=== PATIENT | female | born 1960 | race Caucasian/White ===

== ENCOUNTER 2018-11-23 11:57 | Inpatient (IN) | payer OTHER ==
[~2018-11-23] VITALS: Ht 167.6 cm; Wt 61.7 kg
[~2018-11-23 11:57] MED LIST: DEPAKOTE500 MG PO; NEXIUM40 MG PO; TRAZODONE HCL50 MG PO; VALIUM10 MG PO
--- OUTSIDE RECORDS SUMMARY | 2018-11-23 11:59 | XMS REPORT | Clinical Summary ---
Author Author [place] [facility] [place] [facility] Address Unknown Phone Unavailable Care Team Providers Care Administrative Supervisor Name Role Phone Asked, No Pcp PCP Unavailable Allergies Comments Active Allergy Reactions Severity Noted Date Itching and vomiting Codeine Other (See Medium 08/24/2017 Comments) Medications End Date Status Medication Sig Dispensed Refills Start Date Active traZODone (DESYREL) 150 Take 300 mg 0 05/11/201 MG tablet by mouth 7 nightly. Active diazePAM (VALIUM) 10 MG Take 10 mg by 0 tablet mouth 3 7 (three) times a day. Active venlafaxine XR Take 75 mg by 0 (EFFEXOR-XR) 75 MG 24 hr mouth every 7 capsule morning. Active ondansetron (ZOFRAN) 4 MG Take 1 tablet 10 tablet 0 05/25/ tablet (4 mg total) 9 by mouth every 8 (eight) hours as needed for nausea or vomiting for up to 10 doses. Active esomeprazole (NexIUM) 40 Take 40 mg by 0 MG capsule mouth daily before breakfast. Active BREO ELLIPTA 200-25 Inhale 1 Dose 3 mcg/dose blister with daily. 9 device powder for inhalation Active albuterol (ACCUNEB) 2.5 Take 2.5 mg 2 mg /3 mL (0.083 %) by 9 nebulizer solution nebulization 4 (four) times a day as needed. Active benzonatate (TESSALON) Take 1 30 capsule 0 100 MG capsule capsule (100 9 mg total) by mouth every 6 (six) hours as needed for cough for up to 30 doses. 08/02/2018 Discontinued divalproex (DEPAKOTE) 500 Take 500 mg 0 03/10/201 MG 24 hr tablet by mouth 7 every morning. 05/25/2018 Discontinued albuterol (PROVENTIL) 2.5 Take 2.5 mg 0 mg /3 mL (0.083 %) by 7 nebulizer solution nebulization 3 (three) times a day. 05/25/2018 Discontinued PROAIR HFA 90 Inhale 1 puff 0 mcg/actuation inhaler daily as 7 needed. 08/03/2018 Discontinued (Med List Cleanup) ADVAIR DISKUS 250-50 Inhale 1 puff 0 mcg/dose DISKUS 2 (two) times 7 a day. 01/02/2018 dicyclomine (BENTYL) 20 Take 1 tablet 60 tablet 0 mg tablet (20 mg total) 8 by mouth 2 (two) times a day for 30 days. 12/08/2017 traMADol (ULTRAM) 50 mg Take 1 tablet 15 tablet 0 tablet (50 mg total) 8 by mouth every 6 (six) hours as needed for moderate pain for up to 5 days. 01/02/2018 ondansetron ODT (ZOFRAN Take 1 tablet 20 tablet 0 ODT) 4 MG disintegrating (4 mg total) 8 tablet by mouth every 8 (eight) hours as needed for nausea for up to 30 days. 05/29/2018 azithromycin (ZITHROMAX) Take first 2 6 tablet 0 250 MG tablet tablets 9 together, then 1 every day until finished. 06/24/2018 albuterol (PROAIR Inhale 1-2 1 Inhaler 0 HFA,PROVENTIL puffs every 6 9 HFA,VENTOLIN HFA) 90 (six) hours mcg/actuation inhaler as needed for wheezing for up to 30 days. 05/30/2018 predniSONE (DELTASONE) 10 Take 4 20 tablet 0 mg tablet tablets (40 9 mg total) by mouth daily for 5 days. 05/30/2018 acetaminophen-codeine Take 1-2 15 tablet 0 (TYLENOL WITH CODEINE #3) tablets by 9 300-30 mg per tablet mouth every 6 (six) hours as needed for moderate pain for up to 5 days. 09/06/2018 aspirin (ECOTRIN) 325 MG Take 1 tablet 30 tablet 0 enteric coated tablet (325 mg 9 total) by mouth daily for 30 days. 08/13/2018 amoxicillin-pot Take 1 tablet 14 tablet 0 clavulanate (AUGMENTIN) by mouth 2 9 875-125 mg per tablet (two) times a day for 7 days. 08/13/2018 predniSONE (DELTASONE) 10 follow 1 Package 0 mg tablet pack package 9 directions Active Problems Problem Noted Date Pneumonia 08/03/2018 Bronchopneumonia 08/02/2018 Abdominal pain 06/14/2016 Encounters Care Team Description Date Type Specialty Hay Lynch MD Kohlnhofer, Matthew, MD Al-Lahiq, Maha, MD Bronchopneumonia (Primary Dx); Hypokalemia 08/02/2018 [facility] General Internal Medicine - Encounter 08/06/2018 Hay Lynch MD COPD exacerbation (HCC) (Primary Dx) 05/24/2018 Emergency Emergency Medicine - 05/25/2018 Reuben Micheal MD Nausea and vomiting, intractability of vomiting not specified, unspecified vomiting type (Primary Dx); Diarrhea, unspecified type 12/03/2017 Emergency Emergency Medicine after 11/22/2017 Social History Date Tobacco Use Types Packs/Day Years Used Quit: 05/14/2016 Current Every Day Smoker 0.5 Smokeless Tobacco: Never Used Drinks/Week oz/Week Comments Alcohol Use No Sex Assigned at Date Recorded Not on file Industry Job Start Date Occupation Not on file Not on file Not on file Travel End Travel History Travel Start No recent travel history available. Last Filed Vital Signs Reading Time Taken Comments Vital Sign 109/70 08/06/2018 4:22 PM CDT Blood Pressure 85 08/06/2018 3:10 PM CDT Pulse 36.6 C (97.8 F) 08/06/2018 10:56 AM CDT Temperature 20 08/06/2018 3:10 PM CDT Respiratory Rate 95% 08/06/2018 3:00 PM CDT Oxygen Saturation - - Inhaled Oxygen Concentration 52.2 kg (115 lb) 08/02/2018 9:28 AM CDT Weight 170.2 cm (5' 7") 08/02/2018 9:28 AM CDT Height 18.01 08/02/2018 9:28 AM CDT Body Mass Index Plan of Treatment Health Maintenance Due Date Last Done Comments CERVICAL CANCER SCREENING 07/14/1983 BREAST CANCER SCREENING 2012 COLONOSCOPY SCREENING 2012 SHINGLES VACCINES (#1) 2012 INFLUENZA VACCINE 10/02/2018 Procedures Comments Procedure Name Priority Date/Time Associated Diagnosis GRAM STAIN Routine 08/06/2018 9:08 AM CDT SPUTUM CULTURE Routine 08/06/2018 9:08 AM CDT FL ESOPHAGRAM COMPLETE Routine 08/06/2018 8:35 AM CDT ESTIMATED GFR Routine 08/06/2018 4:35 AM CDT BASIC METABOLIC PANEL Routine 08/06/2018 4:35 AM CDT HC COMPLETE BLD COUNT Routine 08/06/2018 W/AUTO DIFF 4:35 AM CDT ESTIMATED GFR Routine 08/05/2018 6:23 AM CDT BASIC METABOLIC PANEL Routine 08/05/2018 6:23 AM CDT HC COMPLETE BLD COUNT Routine 08/05/2018 W/AUTO DIFF 6:23 AM CDT FL MODIFIED BARIUM Routine 08/04/2018 SWALLOW 5:44 PM CDT ESTIMATED GFR Routine 08/03/2018 5:59 AM CDT COMPREHENSIVE METABOLIC Routine 08/03/2018 PANEL 5:59 AM CDT HC COMPLETE BLD COUNT Routine 08/03/2018 W/AUTO DIFF 5:59 AM CDT TROPONIN Timed 08/02/2018 6:[address] ANGIOGRAM PE CHEST Routine 08/02/2018 5:02 PM CDT ECHOCARDIOGRAM 2D Routine 08/02/2018 COMPLETE W MMODE SPECTRAL 3:57 PM CDT COLOR DOPPLER (27924) TROPONIN Timed 08/02/2018 1:31 PM CDT BLOOD CULTURE, AEROBIC & Routine 08/02/2018 ANAEROBIC 11:45 AM CDT XR CHEST 1 VW PORTABLE STAT 08/02/2018 10:33 AM CDT ESTIMATED GFR STAT 08/02/2018 10:09 AM CDT B NATRIURETIC PEPTIDE STAT 08/02/2018 10:09 AM CDT TROPONIN STAT 08/02/2018 10:09 AM CDT COMPREHENSIVE METABOLIC STAT 08/02/2018 PANEL 10:09 AM CDT HC COMPLETE BLD COUNT STAT 08/02/2018 W/AUTO DIFF 10:09 AM CDT BLOOD CULTURE, AEROBIC & Routine 08/02/2018 ANAEROBIC 10:09 AM CDT ECG ED PRELIMINARY Routine 08/02/2018 INTERPRETATION 9:31 AM CDT ECG 12-LEAD STAT 08/02/2018 9:27 AM CDT ESTIMATED GFR Routine 05/25/2018 12:00 AM CDT COMPREHENSIVE METABOLIC Routine 05/25/2018 PANEL 12:00 AM CDT D-DIMER Routine 05/25/2018 12:00 AM CDT PROTHROMBIN TIME WITH INR Routine 05/25/2018 12:00 AM CDT PARTIAL THROMBOPLASTIN Routine 05/25/2018 TIME (PTT) 12:00 AM CDT XR CHEST 2 VW STAT 05/24/2018 11:52 PM CDT B NATRIURETIC PEPTIDE STAT 05/24/2018 11:35 PM CDT TROPONIN STAT 05/24/2018 11:35 PM CDT HC COMPLETE BLD COUNT STAT 05/24/2018 W/AUTO DIFF 11:35 PM CDT ECG 12-LEAD STAT 05/24/2018 11:08 PM CDT ECG ED PRELIMINARY Routine 05/24/2018 INTERPRETATION 11:[address] ABDOMEN PELVIS W STAT 12/03/2017 CONTRAST 10:53 PM CDT XR CHEST 1 VW PORTABLE STAT 12/03/2017 9:58 PM CDT INFLUENZA ANTIGEN Routine 12/03/2017 9:54 PM CDT ESTIMATED GFR STAT 12/03/2017 9:53 PM CDT TROPONIN STAT 12/03/2017 9:53 PM CDT B NATRIURETIC PEPTIDE STAT 12/03/2017 9:53 PM CDT URINALYSIS SCREEN AND STAT 12/03/2017 MICROSCOPY, WITH REFLEX 9:53 PM CDT TO CULTURE HC COMPLETE BLD COUNT STAT 12/03/2017 W/AUTO DIFF 9:53 PM CDT LIPASE LEVEL STAT 12/03/2017 9:53 PM CDT HEPATIC FUNCTION PANEL STAT 12/03/2017 9:53 PM CDT BASIC METABOLIC PANEL STAT 12/03/2017 9:53 PM CDT GRAM STAIN STAT 12/03/2017 9:53 PM CDT URINE CULTURE STAT 12/03/2017 9:53 PM CDT ECG 12-LEAD Routine 12/03/2017 9:12 PM CDT ECG ED PRELIMINARY Routine 12/03/2017 INTERPRETATION 9:11 PM CDT after 11/22/2017 Results * Sputum culture (08/06/2018 9:08 AM CDT) Sputum culture Normal oral octavio isolated. [place] isolate Comment: [facility] Specimen Information HOSPITAL Specimen Source: Sputum Specimen Site: Expectorated Specimen Sputum - Expectorated Performing Organization Address City/State/Zipcode Phone Number [facility] [place] [address] PATHOLOGY AND GENOMIC MEDICINE [place] [facility] [address] [place] [address] HOSPITAL * Gram stain (08/06/2018 9:08 AM CDT) Only the most recent of 2 results within the time period is included. [facility] Gram stain Few WBC's [place] isolate Few epithelial cells [facility] Rare Gram positive rods [facility] Comment: Specimen Information Specimen Source: Sputum Specimen Site: Expectorated Specimen Sputum - Expectorated Performing Organization Address City/[facility] Phone Number [facility] [place] [address] PATHOLOGY AND GENOMIC MEDICINE [place] [facility] [address] [place] [address] HOSPITAL * FL Esophagram Complete (08/06/2018 8:35 AM CDT) Specimen Narrative Performed At EXAMINATION:FL ESOPHAGRAM COMPLETE [facility] CLINICAL HISTORY:Dysphagiaunexplained COMPARISON:None. Fluoroscopy time: 1 minute 9 seconds. 21 exposures FINDINGS: The patient swallowed air producing granules and barium without difficulty. The esophagus demonstrates normal motility. No focal mucosal abnormality is identified. There is no evidence of stricture. The esophagogastric junction is unremarkable. Mild gastroesophageal reflux. IMPRESSION: Mild gastroesophageal reflux. Otherwise unremarkable esophagram. [id number] Procedure Note Interface, Radiology Results Incoming - 08/06/2018 9:44 AM CDT EXAMINATION: FL ESOPHAGRAM COMPLETE CLINICAL HISTORY: Dysphagia unexplained COMPARISON: None. Fluoroscopy time: 1 minute 9 seconds. 21 exposures FINDINGS: The patient swallowed air producing granules and barium without difficulty. The esophagus demonstrates normal motility. No focal mucosal abnormality is identified. There is no evidence of stricture. The esophagogastric junction is unremarkable. Mild gastroesophageal reflux. IMPRESSION: Mild gastroesophageal reflux. Otherwise unremarkable esophagram. [id number] Performing Organization Address City/State/Zipcode Phone Number [address] [address] * Estimated GFR (08/06/2018 4:35 AM CDT) Only the most recent of 6 results within the time period is included. [facility] Estimated GFR >=90 mL/min/1.73 m2 [place] Comment: [facility] rpretation G1 >=90 Normal or high G2 60-89Mildly decreased G8u41-90 Mildly to moderately decreased E3d26-34 Moderately to severely decreased G4 15-29Severely decreased G5 <15Kidney failure The eGFR was calculated using the Chronic Kidney Disease Epidemiology Collaboration (CKD-EPI) equation. Interpretation is based on recommendations of the National Kidney Foundation-Kidney Disease Outcomes Quality Initiative (NKF-KDOQI) published in 2014. Specimen Plasma specimen Performing Organization Address City/State/Zipcode Phone Number [facility] DEPARTMENT [id number] [place] [address] [place] [address] PATHOLOGY AND GENOMIC MEDICINE [facility] [id number] [place] [address] [place] [address] [facility] * CBC with platelet and differential (08/06/2018 4:35 AM CDT) Only the most recent of 6 results within the time period is included. [facility] WBC 7.02 4.50 - 11.00 k/uL [facility] RBC 3.46 (L) 4.20 - 5.50 m/uL [facility] HGB 9.6 (L) 12.0 - 16.0 g/dL [facility] HCT 31.2 (L) 37.0 - 47.0 % [facility] MCV 90.2 82.0 - 100.0 fL [facility] MCH 27.7 27.0 - 34.0 pg [facility] MCHC 30.8 (L) 31.0 - 37.0 g/dL [facility] RDW - SD 49.3 37.0 - 55.0 fL [facility] MPV 9.4 8.8 - 13.2 fL [facility] Platelet count 378 150 - 400 k/uL [facility] Nucleated RBC 0.00 /100 WBC [facility] Neutrophils 78.7 (H) 39.0 - 69.0 % [facility] Lymphocytes 16.1 (L) 25.0 - 45.0 % [facility] Monocytes 3.8 0.0 - 10.0 % [facility] Eosinophils 0.0 0.0 - 5.0 % [facility] Basophils 0.1 0.0 - 1.0 % [facility] Specimen Blood Performing Organization Address City/[facility] Phone Number [facility] [address] [place] [address] PATHOLOGY AND GENOMIC MEDICINE [address] * Basic metabolic panel (08/06/2018 4:35 AM CDT) Only the most recent of 3 results within the time period is included. Sodium 138 135 - 148 mEq/L [facility] Potassium 4.8 3.5 - 5.0 mEq/L [facility] Chloride 99 98 - 112 mEq/L [facility] CO2 30 24 - 31 mEq/L [facility] Anion gap 9@ANIO 7 - 15 mEq/L [facility] BUN 26 (H) 6 - 20 mg/dL [facility] Creatinine 0.60 0.50 - 0.90 mg/dL [facility] Glucose 152 (H) 65 - 99 mg/dL [facility] Calcium 9.1 8.3 - 10.2 mg/dL [facility] Specimen Plasma specimen Performing Organization Address [facility] Phone Number [address] [place] [address] PATHOLOGY AND GENOMIC MEDICINE [address] * FL Modified Barium Swallow (08/04/2018 5:44 PM CDT) Specimen Narrative Performed At EXAMINATION:FL MODIFIED BARIUM SWALLOW [facility] CLINICAL HISTORY:Aspirationknown or suspected, R63.3 feeding [id number] oropharyngeal stage dysphagiaGERD COMPARISON:None. Fluoroscopy time: 3 minutes 10 seconds, single image obtained FINDINGS: The patient swallowed varying consistencies of barium under direct lateral fluoroscopic evaluation. The study was performed in conjunction with speech pathology. IMPRESSION: There is transient flash laryngeal penetration with ultrathin and thin barium. No aspiration with all consistencies.. Please refer to Speech Pathology report for further details. [id number] Procedure Note Hm Interface, Radiology Results Incoming - 08/04/2018 6:06 PM CDT EXAMINATION: FL MODIFIED BARIUM SWALLOW CLINICAL HISTORY: Aspiration known or suspected, R63.3 feeding difficulty R13.12 oropharyngeal stage dysphagia GERD COMPARISON: None. Fluoroscopy time: 3 minutes 10 seconds, single image obtained FINDINGS: The patient swallowed varying consistencies of barium under direct lateral fluoroscopic evaluation. The study was performed in conjunction with speech pathology. IMPRESSION: There is transient flash laryngeal penetration with ultrathin and thin barium. No aspiration with all consistencies.. Please refer to Speech Pathology report for further details. [id number] Performing Organization Address City/State/Zipcode Phone Number [facility] [address] [place] [address] * Comprehensive metabolic panel (08/03/2018 5:59 AM CDT) Only the most recent of 3 results within the time period is included. Sodium 136 135 - 148 mEq/L [facility] Potassium 4.4 3.5 - 5.0 mEq/L [facility] Chloride 100 98 - 112 mEq/L [facility] CO2 26 24 - 31 mEq/L [facility] Anion gap 10@ANIO 7 - 15 mEq/L [facility] BUN 13 6 - 20 mg/dL [facility] Creatinine 0.60 0.50 - 0.90 mg/dL [facility] Glucose 148 (H) 65 - 99 mg/dL [facility] Calcium 9.5 8.3 - 10.2 mg/dL [facility] Protein 7.7 6.3 - 8.3 g/dL [place] Comment: [facility] 4.6-7.0 g/dL 1 week 4.4-7.6 g/dL 7 months-1year 5.1-7.3 g/dL 1-2 years5.6-7 .5 g/dL >3 years6.0-8 .0 g/dL 18-150 6.3-8.3 g/dL Albumin 3.8 3.5 - 5.0 g/dL [facility] A/G ratio 1.0 0.7 - 3.8 [facility] Alkaline 79 35 - 104 U/L [place] phosphatase [facility] AST 8 (L) 10 - 35 U/L [facility] ALT 8 5 - 50 U/L [facility] Total bilirubin <0.2 0.0 - 1.2 mg/dL [facility] Specimen Plasma specimen Performing Organization Address City/[facility] Phone Number [facility] DEPARTMENT OF [address] [place] [address] [place] [address] PATHOLOGY AND GENOMIC MEDICINE [address] * Troponin (08/02/2018 6:20 PM CDT) Only the most recent of 5 results within the time period is included. Troponin <0.006 0.000 - 0.040 ng/mL [place] Comment: [facility] changed methodology effective: 07/08/2018 at 10:00 am The new method has a 99th percentile cutoff of 0.040 ng/mL Specimen Plasma specimen Performing Organization Address [facility] Phone Number [address] [place] [address] PATHOLOGY AND [facility] MEDIC[facility] [address] * CT Angiogram Pe Chest (08/02/2018 5:02 PM CDT) Specimen Narrative Performed At EXAMINATION: [facility] CT ANGIOGRAM PE CHEST CLINICAL HISTORY: chest painpossible pneumonia TECHNIQUE: CT angiographic images of the chest were obtained during intravenous administration of iodinated contrast. Computerized reformatted images and 3-D MIP images were also obtained and archived (CT pulmonary embolus protocol).CT imaging was performed with iterative reconstruction technique and/or automated exposure control to reduce radiation dose. 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 Heart size is within normal limits. Intrathoracic aorta is of normal caliber. The pulmonary artery is of normal caliber. There is a right hilar lymph node measuring 1.5 x 0.9 cm. An enlarged subcarinal lymph node is 2.8 x 1.5 cm. Some mildly enlarged left hilar nodes are seen. There is a small hiatal hernia. No filling defect is seen in the visible pulmonary arterial tree. There is therefore no CT evidence pulmonary embolus. Bilateral bronchial wall thickening is seen. Extensive bilateral emphysematous changes are again seen. Right apical pleural/peripheral scarring is seen. Right upper lobe pulmonary nodule is 1.3 x 0.8 cm. Some peripheral areas of mild nodularity and linear scarring or atelectasis is seen. Left lower lobe peripheral infiltration is seen. Patchy areas of peripheral infiltration a few small nodules are seen in left upper lobe. There is mild to moderate intrahepatic ductal dilatation again seen. The pancreas, adrenal glands, and spleen are within normal limits. Kidneys are within normal limits in their visible portions. Suspicious osseous lesion is not seen. IMPRESSION: Severe emphysema. Bilateral infiltrates and nodularity most likely related to infectious cause (pneumonia). Enlarged mediastinal lymph nodes. No evidence of pulmonary embolus. [facility]-[id number] Procedure Note [facility], Radiology Results Incoming - 08/02/2018 7:58 PM CDT EXAMINATION: CT ANGIOGRAM PE CHEST CLINICAL HISTORY: chest pain possible pneumonia TECHNIQUE: CT angiographic images of the chest were obtained during intravenous administration of iodinated contrast. Computerized reformatted images and 3-D MIP images were also obtained and archived (CT pulmonary embolus protocol).CT imaging was performed with iterative reconstruction technique and/or automated exposure control to reduce radiation dose. 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 Heart size is within normal limits. Intrathoracic aorta is of normal caliber. The pulmonary artery is of normal caliber. There is a right hilar lymph node measuring 1.5 x 0.9 cm. An enlarged subcarinal lymph node is 2.8 x 1.5 cm. Some mildly enlarged left hilar nodes are seen. There is a small hiatal hernia. No filling defect is seen in the visible pulmonary arterial tree. There is therefore no CT evidence pulmonary embolus. Bilateral bronchial wall thickening is seen. Extensive bilateral emphysematous changes are again seen. Right apical pleural/peripheral scarring is seen. Right upper lobe pulmonary nodule is 1.3 x 0.8 cm. Some peripheral areas of mild nodularity and linear scarring or atelectasis is seen. Left lower lobe peripheral infiltration is seen. Patchy areas of peripheral infiltration a few small nodules are seen in left upper lobe. There is mild to moderate intrahepatic ductal dilatation again seen. The pancreas, adrenal glands, and spleen are within normal limits. Kidneys are within normal limits in their visible portions. Suspicious osseous lesion is not seen. IMPRESSION: Severe emphysema. Bilateral infiltrates and nodularity most likely related to infectious cause (pneumonia). Enlarged mediastinal lymph nodes. No evidence of pulmonary embolus. [facility]-[id number] Performing Organization Address City/State/Zipcode Phone Number [facility] [address] [place] [address] * Echocardiogram complete w contrast and 3D if needed (08/02/2018 3:57 PM CDT) Velocity Ratio 0.95 m/s [facility] (V1/V2) IVS,d 0.82 cm [facility] EF 50.13 % [facility] LA volume 32.00 cm3 [facility] LVPWD,d 0.94 cm [facility] AoV Mean PG 3.76 mmHg [facility] AV LVOT peak 5.64 mmHg [facility] gradient MV valve area p 4.37 cm2 [facility] 1/2 method E/A ratio 1.04 [facility] E wave 144.63 msec [facility] decelartion time LVOT Diam,S 1.75 cm [facility] LVOT area 2.40 cm2 [facility] LVOT Vmax 1.19 m/s [facility] LVOT VTI 0.25 m [facility] AoV Peak PG 6.30 mmHg [facility] MV Peak E Jose 0.86 m/s [facility] MV stenosis 50.39 ms [facility] pressure 1/2 time MV Peak A Jose 0.83 m/s [facility] LV Vol,s A2C 37.43 mL [facility] LV Vol,d A2C 87.55 mL [facility] AoV Area, Vmax 2.28 cm2 [facility] AoV Area, VTI 2.53 cm2 [facility] AoV Vmax 1.25 m/s [facility] LA Area d A4C 26 cm2 [facility] LV,d 3.29 cm [facility] LV,s 2.48 cm [facility] LV Vol,d A4C 84.10 ml [facility] LV Vol,s A4C 45.18 ml [facility] MV E A ratio 1.04 [facility] LV SYS VOL 21.81 ml [facility] LV APPLE VOL 43.73 ml [facility] LA area s A4C 12.95 cm2 [facility] LV SV Teich 2D 21.92 ml [facility] LVOT SI 37.76 ml/m2 [facility] AoV Vmn 0.94 [facility] IVS s 2D 1.11 [facility] D E excurs 0.80 [facility] E f slope 0.07 [facility] E prime lat 0.12 [facility] E lamberto sept 0.10 [facility] PV acc T slope 8.40 [facility] PV AT 88.49 msec [facility] AoV VTI 0.24 m [facility] LV EF,A2C 57.24 % [facility] LV EF,A4C 46.29 % [facility] LV EF,BP 53.32 % [facility] Héctor Lowell,d A2C 7.49 cm [facility] Héctor Lowell,d A4C 6.93 cm [facility] Héctor [place]ell,s A2C 6.48 cm [facility] Hétcor [place],s A4C 6.32 cm [facility] LV SV,A2C 50.12 % [facility] LV SV,A4C 38.93 % [facility] LV Vol,d BP 88.93 ml [facility] LV Vol,s BP 41.51 nl [facility] LVOT Vmn 0.82 [facility] Pt Size 170.18 [facility] Pt Wt 52.16 [facility] LVOT mean grad 3.07 mmHg [facility] LVPW s PLAX 1.25 cm [facility] MV Decel slope 5.95 m/s2 [facility] Specimen Narrative Performed At [facility] Left ventricular systolic function is normal. Left Ventricular ejection fraction is 55 - 60%. Suboptimal study. Valve structures not well seen Normal diastolic function Inadequate TR. RVSP can not be calculated. Performing Organization Address City/State/Zipcode Phone Number [facility] [address] [place] [address] * Blood culture, aerobic & anaerobic (08/02/2018 11:45 AM CDT) Only the most recent of 2 results within the time period is included. Blood culture No growth after 5 days of [place] isolate incubation. [facility] Comment: HOSPITAL Specimen Information Specimen Source: Blood Specimen Site: Antecubital, right Specimen Blood - Antecubital, right Performing Organization Address [facility]/Zipcode Phone Number [facility] DEPARTMENT OF [address] [place] [address] PATHOLOGY AND GENOMIC MEDICINE [address] * XR Chest 1 Vw Portable (08/02/2018 10:33 AM CDT) Only the most recent of 2 results within the time period is included. Specimen Narrative Performed At EXAMINATION:XR CHEST 1 VW PORTABLE [facility] CLINICAL HISTORY: SOB COMPARISON:05/24/2018 IMPRESSION: Lungs are hyperinflated and emphysematous. There are new interstitial infiltrates in the mid and lower lung zone suggesting bronchopneumonia. Heart size is normal. There is no effusion or pneumothorax. Visualized osseous structures are intact. [facility]-[id number] Procedure Note Hm Interface, Radiology Results Incoming - 08/02/2018 10:40 AM CDT EXAMINATION: XR CHEST 1 VW PORTABLE CLINICAL HISTORY: SOB COMPARISON: 05/24/2018 IMPRESSION: Lungs are hyperinflated and emphysematous. There are new interstitial infiltrates in the mid and lower lung zone suggesting bronchopneumonia. Heart size is normal. There is no effusion or pneumothorax. Visualized osseous structures are intact. [facility]-[id number] Performing Organization Address [facility] Phone Number [facility] [address] [place] [address] * B natriuretic peptide (08/02/2018 10:09 AM CDT) Only the most recent of 3 results within the time period is included. BNP 6 0 - 100 pg/mL [facility] Specimen Blood Performing Organization Address City/[facility]/Zipcode Phone Number [facility] [place] [id number] [place] [address] [place] [address] PATHOLOGY AND GENOMIC MEDICINE [address] * ECG ED Preliminary Interpretation - Not an Order (08/02/2018 9:31 AM CDT) Only the most recent of 3 results within the time period is included. Narrative Performed At Hay Lynch MD 08/02/2018 11:15 AM ECG ED Preliminary Interpretation - Not an Order Performed by: Hay Lynch MD Authorized by: Hay Lynch MD ECG reviewed by ED Physician in the absence of a patient placement coordinator: yes Interpretation: Interpretation: normal Rate: ECG rate:88 ECG rate assessment: normal Rhythm: Rhythm: sinus rhythm Ectopy: Ectopy: none QRS: QRS axis:Normal QRS intervals:Normal Conduction: Conduction: normal ST segments: ST segments:Non-specific T waves: T waves: non-specific * ECG 12 lead (08/02/2018 9:27 AM CDT) Only the most recent of 3 results within the time period is included. Ventricular 88 [facility]USE rate Atrial rate 88 [facility] CA interval 130 [facility] QRSD interval 90 [facility] QT interval 368 [facility] QTC interval 445 [facility] P axis 1 76 [facility] QRS axis 1 78 [facility] T wave axis 75 [facility] EKG impression Normal sinus rhythm-Biatrial [facility]USE enlargement-Septal infarct , age undetermined-Abnormal ECG-In automated comparison with ECG of 24-MAY-2018 23:08,-Septal infarct is now present- Specimen Narrative Performed At Performing Organization Address City/[facility] Phone Number [facility] MUSE [address] [place] [address] * Partial thromboplastin time, activated (05/25/2018 12:00 AM CDT) Pathologist [facility] PTT 34.0 23.0 - 36.0 sec [place] Comment: [facility] PTT therapeutic range for [facility] unfractionated heparin is 61.0-112.0 seconds which corresponds to Anti-Xa 0.3-0.7 U/ml. Specimen Blood Performing Organization Address City/[facility]/Zipcode [place] [address] [place] [address] PATHOLOGY AND GENOMIC MEDICINE [facility] [id number] [place] [address] [place] [address] [facility] * Prothrombin time with INR (05/25/2018 12:00 AM CDT) Pathologist [facility] Prothrombin 15.2 (H) 11.5 - 14.5 sec [facility] INR 1.2 [place] Comment: [facility]ANG[facility] ST The International Normalized [facility] Ratio (INR) is a therapeutic monitoring tool for patients who are stable on oral anticoagulant therapy. An INR of 2.0-3.0 is suggested for deep vein thrombosis/pulmonary embolism. Specimen Blood Performing Organization Address [facility]/Zipcode Phone Number [facility] [address] [place] [address] [place] [address] PATHOLOGY AND GENOMIC MEDICINE [facility] [id number] [place] [address] * D-dimer (05/25/2018 12:00 AM CDT) D-dimer 0.35 0.00 - 0.40 ug/mL [place] Comment: FEU [facility] Units are ug/ml Fibrinogen [facility] Equivalent Unit. When combined with low clinical probability, D-dimer results of less than 0.5 ug/ml FEU have a good negativepredictive value in excluding PE or DVT. For D-dimer results greater than 0.5ug/ml FEU further testing is indicated if PE or DVT is suspectedclinically. Elevated D-dimer results have been reported in DVT, PE, and DIC cases and may indicate the presence of a clot. D-dimer results may be elevated due to old age, , inflammatory diseases, trauma, post-operative states, sepsis, and malignancies. Specimen Blood Performing Organization Address [facility]/Zipcode Phone Number [facility] OF [address] [place] [address] [place] [address] PATHOLOGY AND GENOMIC MEDICINE [address] * XR Chest 2 Vw (05/24/2018 11:52 PM CDT) Specimen Narrative Performed At EXAMINATION: XR CHEST 2 VW [facility] CLINICAL HISTORY: Chest pain COMPARISON:12/03/2017. IMPRESSION: Biapical pleural-parenchymal scarring. Mild interstitial prominence is stable, likely related to chronic change. The lungs are otherwise clear. No pleural effusion or pneumothorax. The cardiomediastinal silhouette is normal. No acute osseous abnormalities. [facility]-[id number] Procedure Note Hm Interface, Radiology Results Incoming - 05/25/2018 12:01 AM CDT EXAMINATION: XR CHEST 2 VW CLINICAL HISTORY: Chest pain COMPARISON: 12/03/2017. IMPRESSION: Biapical pleural-parenchymal scarring. Mild interstitial prominence is stable, likely related to chronic change. The lungs are otherwise clear. No pleural effusion or pneumothorax. The cardiomediastinal silhouette is normal. No acute osseous abnormalities. [facility]-[id number] Performing Organization Address City/State/Zipcode Phone Number [facility] [address] [place] [address] * CT Abdomen Pelvis W Contrast (12/03/2017 10:53 PM CDT) Specimen Narrative Performed At Examination:CT ABDOMEN PELVIS W CONTRAST [facility] Clinical History: epigastric pain eval colitis Comparison: None. Findings: CT scans are performed using radiation dose reduction techniques.Technical factors are evaluated and adjusted to ensure appropriate moderation of exposure.Automated dose management technology is applied to adjust radiation exposure while achieving a diagnostic quality image. CT scan of the abdomen and pelvis was performed after intravenous contrast. The patient is status post cholecystectomy. The common bile duct is mildly dilated measuring 1.1 cm. The spleen, pancreas, gallbladder, and adrenal glands are unremarkable. Small subcentimeter right renal cyst is noted. Bilateral intrarenal calculi are noted. On the right it measures up to 2 mm. On the left it measures up to 1 mm. No hydronephrosis is seen. The appendix is visualized and unremarkable. No bowel wall thickening or fat stranding is seen. No bowel dilatation is seen. No free air or fluid is seen. Urinary bladder is unremarkable. The visualized lung bases are clear. IMPRESSION: 1. Status post cholecystectomy. Common bile duct is mildly dilated. There is some mild intrahepatic biliary dilatation is well. Common bile duct stone cannot be excluded. 2. Bilateral nonobstructing intrarenal calculi. 3. Otherwise no acute abnormality identified in the abdomen or pelvis. [facility]-[id number] Procedure Note Interface, Radiology Results Incoming - 12/03/2017 11:03 PM CDT Examination: CT ABDOMEN PELVIS W CONTRAST Clinical History: epigastric pain eval colitis Comparison: None. Findings: CT scans are performed using radiation dose reduction techniques. Technical factors are evaluated and adjusted to ensure appropriate moderation of exposure. Automated dose management technology is applied to adjust radiation exposure while achieving a diagnostic quality image. CT scan of the abdomen and pelvis was performed after intravenous contrast. The patient is status post cholecystectomy. The common bile duct is mildly dilated measuring 1.1 cm. The spleen, pancreas, gallbladder, and adrenal glands are unremarkable. Small subcentimeter right renal cyst is noted. Bilateral intrarenal calculi are noted. On the right it measures up to 2 mm. On the left it measures up to 1 mm. No hydronephrosis is seen. The appendix is visualized and unremarkable. No bowel wall thickening or fat stranding is seen. No bowel dilatation is seen. No free air or fluid is seen. Urinary bladder is unremarkable. The visualized lung bases are clear. IMPRESSION: 1. Status post cholecystectomy. Common bile duct is mildly dilated. There is some mild intrahepatic biliary dilatation is well. Common bile duct stone cannot be excluded. 2. Bilateral nonobstructing intrarenal calculi. 3. Otherwise no acute abnormality identified in the abdomen or pelvis. [facility]-[id number] Performing Organization Address City/State/Zipcode Phone Number [facility] [address] [place] [address] * Influenza antigen (12/03/2017 9:54 PM CDT) [facility] Influenza Negative for Influenza A/B [facility] antigen antigen. DEPARTMENT OF Comment: PATHOLOGY AND Specimen Information GENOMIC Specimen Source: [facility] Specimen Site: Other Specimen Nar - Other- Detailed Description Required Performing Organization Address City/[facility]/Zipcode Phone Number [facility] DEPARTMENT [address] [place] [address] PATHOLOGY AND GENOMIC MEDICINE * Urinalysis screen and microscopy, with reflex to culture (12/03/2017 9:53 PM CDT) Pathologist [facility] Specimen site Clean catch [facility] DEPARTMENT OF PATHOLOGY AND GENOMIC MEDICINE Color, UA Yellow [facility] DEPARTMENT OF PATHOLOGY AND GENOMIC MEDICINE Appearance, UA Slightly-Cloudy [facility] DEPARTMENT OF PATHOLOGY AND GENOMIC MEDICINE Specific 1.012 1.001 - 1.035 [facility] gravity, DEPARTMENT OF PATHOLOGY AND GENOMIC MEDICINE pH, UA 5.0 5.0 - 8.5 [facility] DEPARTMENT OF PATHOLOGY AND GENOMIC MEDICINE Protein, UA Negative Negative [facility] DEPARTMENT OF PATHOLOGY AND GENOMIC MEDICINE Glucose, UA Negative Negative [facility] DEPARTMENT OF PATHOLOGY AND GENOMIC MEDICINE Ketones, UA Negative Negative [facility] DEPARTMENT OF PATHOLOGY AND GENOMIC MEDICINE Bilirubin, UA Negative Negative [facility] DEPARTMENT OF PATHOLOGY AND GENOMIC MEDICINE Blood, UA Negative Negative [facility] DEPARTMENT OF PATHOLOGY AND GENOMIC MEDICINE Nitrite, UA Negative Negative [facility] DEPARTMENT OF PATHOLOGY AND GENOMIC MEDICINE Urobilinogen, Negative <2.0 [facility] DE[facility] OF PATHOLOGY AND GENOMIC MEDICINE Leukocyte Small (A) Negative [facility] esterase, DEPARTMENT OF PATHOLOGY AND GENOMIC MEDICINE Epithelial Few /HPF [facility] cells, UA DEPARTMENT OF PATHOLOGY AND GENOMIC MEDICINE WBC, UA 0-5 0 - 4 /HPF [facility] DEPARTMENT OF PATHOLOGY AND GENOMIC MEDICINE RBC, UA 0-5 0 - 5 /HPF [facility] DEPARTMENT OF PATHOLOGY AND GENOMIC MEDICINE Bacteria, UA None seen None seen [facility] DEPARTMENT OF PATHOLOGY AND GENOMIC MEDICINE Yeast, UA None seen [facility] DEPARTMENT OF PATHOLOGY AND GENOMIC MEDICINE Yeast with None seen [facility] pseudohyphae, DEPARTMENT OF PATHOLOGY AND GENOMIC MEDICINE Specimen Urine Performing Organization Address City/[facility] Phone Number [address] [place] [address] PATHOLOGY AND GENOMIC MEDICINE * Urine culture (12/03/2017 9:53 PM CDT) Pathologist [facility] Urine culture Mixed Gram positive octavio [facility] DEPARTMENT isolate 10-2 cfu/ml OF PATHOLOGY (A) AND GENOMIC Comment: MEDICINE Specimen Information Specimen Source: Urine Specimen Site: Clean catch Specimen Urine Performing Organization Address City/[facility] Hospital[place] [address] PATHOLOGY AND GENOMIC MEDICINE * Lipase level (12/03/2017 9:53 PM CDT) Pathologist [facility] Lipase 13 13 - 60 U/L [facility] DEPARTMENT OF PATHOLOGY AND GENOMIC MEDICINE Specimen Plasma specimen Performing Organization Address [facility] Phone Number [address] [place] [address] PATHOLOGY AND GENOMIC MEDICINE * Hepatic function panel (12/03/2017 9:53 PM CDT) Pathologist [facility] Albumin 4.1 3.5 - 5.0 g/dL [facility] DEPARTMENT OF PATHOLOGY AND GENOMIC MEDICINE Total bilirubin <0.2 0.0 - 1.2 mg/dL [facility] DEPARTMENT OF PATHOLOGY AND GENOMIC MEDICINE Bilirubin <0.1 0.0 - 0.3 mg/dL [facility] direct DEPARTMENT OF PATHOLOGY AND GENOMIC MEDICINE Alkaline 84 35 - 104 U/L [facility] phosphatase DEPARTMENT OF PATHOLOGY AND GENOMIC MEDICINE Protein 8.2 6.3 - 8.3 g/dL [facility] Comment: DEPARTMENT OF PATHOLOGY AND 4.6-7.0 g/dL GENOMIC 1 MEDICINE week 4.4-7.6 g/dL 7 months-1year 5.1-7.3 g/dL 1-2 years5.6-7 .5 g/dL >3 years6.0-8 .0 g/dL 18-150 6.3-8.3 g/dL ALT 9 5 - 50 U/L [facility] DEPARTMENT OF PATHOLOGY AND GENOMIC MEDICINE AST 17 10 - 35 U/L [facility] DEPARTMENT OF PATHOLOGY AND GENOMIC MEDICINE Specimen Plasma specimen Performing Organization Address City/State/Zipcode Phone [place] [facility] [address] [place] [address] PATHOLOGY AND GENOMIC MEDICINE after 11/22/2017 Insurance Type Payer Benefit Subscriber ID Effective Phone Address Plan / Dates Group O [facility] MEDICAID [facility] xxxxxxxxx 2011- COMM STAR+ Present [address] DR THOMPSON [address] [place] [address] (Home) [place] [address] Advance Directives For more information, please contact: [phone] Patient Film Spooler Explanation Type Date Recorded Advance Directives, 05/24/2018 10:59 PM Living Will and Medical Power of Stock Layer Date Inactivated Comments Code Status Date Activated 08/06/2018 9:12 PM Full Code 08/02/2018 12:16 PM Code Status decision reached by: Patient 06/16/2016 2:05 PM Full Code 06/14/2016 6:16 PM Code Status decision reached by: Patient
--- OUTSIDE RECORDS SUMMARY | 2018-11-23 11:59 | XMS REPORT ---
[facility] Address Unknown Phone Unavailable Care Team Providers Care Superintendent House Name Role Phone Unavailable Unavailable Payers Payer Name Policy Type Policy Number Effective Date Expiration Date Problems This patient has no known problems. Allergies, Adverse Reactions, Alerts Allergy Name Allergy Type Status Severity Reaction(s) Onset Date Inactive Date Treating Clinician Comments codeine DA Active U 2018-09-16 00:00:00 No Known Allergies DA Active U 2015-07-06 00:00:00 Medications This patient has no known medications. Results Test Description Test Time Test Comments Text Results Atomic Results Result Comments GASTRIC,BIOPSY 2018-09-24 16:21:00 RUN DATE: 09/24/18 [employer] - Lab PAGE 1 RUN TIME: 1621 Specimen Inquiry RUN USER: INTERFACE PATIENT: RAZIA MORALES LOC: KILO U #: [id number] AGE/SX: 58/F ROOM: RE09/23/18[facility] DR: Peyman Matta MD : 64 BED: DIS: STATUS: [facility] [place] TLOC: SPEC #: [id number] RECD: 09/23/18 STATUS: [facility] #: [id number] TANESHA: 09/23/[address] [facility] [address]: Peyman Matta MD ENTERED: 09/23/18 SP TYPE: GASTRIC BX OTHR DR: Marcela Arce MD ORDERED: GROSS COPIES TO: Peyman Matta MD [address] [place], [place] [id number] Marcela Arce MD [address] [place] [address] PROCEDURES: GROSS (09/24/18-1034) TISSUES: 1. ANTRUM - BX 2. G/E JUNCTION - BX 3. RECTUM, NOS - POLYP HOT BX CLINICAL HISTORY COLLECTION DATE: 09/23/2018 ABDOMINAL PAIN, BLOOD IN STOOL POST-OP DIAGNOSIS: ULCERATED ESOPHAGUS, GASTRITIS, HIATAL HERNIA, GE JUNCTION NODULE, RECTAL POLYP, INTERNAL HEMORRHOIDS FINAL DIAGNOSIS Antrum, biopsy: REACTIVE GASTROPATHY WITH PATCHY MILD CHRONIC INFLAMMATION NO INTESTINAL METAPLASIA SEEN NEGATIVE FOR HELICOBACTER PYLORI NEGATIVE FOR MALIGNANCY G.E.-Junction, biopsy: ACUTE AND CHRONIC INFLAMMATION WITH REACTIVE EPITHELIAL CHANGES, MIXED SQUAMOUS ESOPHAGEAL AND GASTRIC TYPE MUCOSA NEGATIVE FOR MALIGNANCY Rectum, polyp, biopsy: COLONIC MUCOSA WITH HYPERPLASTIC CHANGE SUGGESTIVE OF HYPERPLASTIC POLYP CONTINUED ON NEXT PAGE RUN DATE: 09/24/18 [place] - Lab PAGE 2 RUN TIME: 1621 Specimen Inquiry RUN USER: INTERFACE SPEC #: [id number] PATIENT: RAZIA MORALES NUBIA #[id number] (Continued) FINAL DIAGNOSIS (Continued) NEGATIVE FOR MALIGNANY [facility]/ D [phone] MACROSCOPIC The first specimen is received in formalin, labeled with the patient's name, identified as "antrum bx". It consists of delvalle biopsy tissue measuring 0.4 cm in aggregate. An H E and a Giemsa stain will be prepared. The second specimen is received in formalin, labeled with the patient's name, identified as "g.e.-junction". It consists of delvalle biopsy tissue measuring 0.4 cm in aggregate. The third specimen is received in formalin, labeled with the patient's name, identified as "rectal polyp". It consists of delvalle biopsy tissue measuring 0.2 cm. GROSS PERFORMED AT [facility] [address] [place] [address] [phone] MICROSCOPIC All of the stains, including any controls performed, stain appropriately. MICROSCOPIC PERFORMED AT [facility] [address] [place] [address] [phone])[phone] PERFORMING SITE Diagnosis performed at: [facility] [address] [place] [address] CONTINUED ON NEXT PAGE ---------RUN DATE: 09/24/18 [facility] PAGE 3 RUN TIME: 1621 Specimen Inquiry RUN USER: INTERFACE SPEC #: [id number] PATIENT: RAZIA MORALES #[id number] (Continued) Signed SIGNATURE ON FILE Pamella Reid MD 09/24/18 1621 END OF REPORT BASIC METABOLIC PANEL 2018-09-16 15:12:00 SODIUM (test code=NA) 142 mmol/L 136-145 POTASSIUM (test code=K) 3.8 mmol/L 3.5-5.1 CHLORIDE (test code=CL) 108.0 mmol/L 98-107 CARBON DIOXIDE (test code=CO2) 25.0 mmol/L 21-32 ANION GAP (test code=GAP) 12.8 10-20 GLUCOSE (test code=GLU) 91 mg/dL 74-106 BLOOD UREA NITROGEN (test code=BUN) 10 mg/dL 7-18 GLOMERULAR FILTRATION RATE (test code=GFR) > 60 mL/min >=60 Estimated GFR by using Modified MDRD formula.Chronic kidney disease is defined as either kidney damageor GFR <60 mL/min/1.73 m2 for >3 months. CREATININE (test code=CREAT) 0.60 mg/dL 0.55-1.02 Note change in reference range due to change in reagent. BUN/CREATININE RATIO (test code=BUN/CREA) 15.8 10-20 CALCIUM (test code=CA) 7.9 mg/dL 8.5-10.1 BASIC METABOLIC [id number] 15:03:00* Test Item Value Reference Range Comments SODIUM (test code=NA) 142 mmol/L 136-145 POTASSIUM (test code=K) 3.8 mmol/L 3.5-5.1 CHLORIDE (test code=CL) 108.0 mmol/L 98-107 CARBON DIOXIDE (test code=CO2) mmol/L 21-32 ANION GAP (test code=GAP) 10-20 GLUCOSE (test code=GLU) mg/dL 74-106 BLOOD UREA NITROGEN (test code=BUN) mg/dL 7-18 GLOMERULAR FILTRATION RATE (test code=GFR) mL/min >=60 CREATININE (test code=CREAT) mg/dL 0.55-1.02 BUN/CREATININE RATIO (test code=BUN/CREA) 10-20 CALCIUM (test code=CA) mg/dL 8.5-10.1 CBC W/AUTO [id number] 14:52:00* Test Item Value Reference Range Comments WHITE BLOOD CELL (test code=WBC) 6.2 K/mm3 4.5-12.5 RED BLOOD CELL (test code=RBC) 3.10 mill/mm3 3.7-5.2 HEMOGLOBIN (test code=HGB) 8.3 gram/dL 11.5-15.5 HEMATOCRIT (test code=HCT) 28.0 % 36.0-46.0 MEAN CELL VOLUME (test code=MCV) 90.3 fL 80-98 MEAN CELL HGB (test code=MCH) 26.8 picogram 27.0-33.0 MEAN CELL HGB CONCETRATION (test code=MCHC) 29.6 gram/dL 33.0-36.0 RED CELL DISTRIBUTION WIDTH (test code=RDW) 15.9 % 11.6-16.2 RED CELL DISTRIBUTION WIDTH SD (test code=RDW-SD) 52.0 fL 37.0-51.0 PLATELET COUNT (test code=PLT) 417 K/mm3 150-450 MEAN PLATELET VOLUME (test code=MPV) 9.1 fL 6.7-11.0 NEUTROPHIL % (test code=NT%) 59.0 % 39.0-69.0 IMMATURE GRANULOCYTE % (test code=IG%) 0.5 % 0.0-5.0 LYMPHOCYTE % (test code=LY%) 26.0 % 25.0-55.0 MONOCYTE % (test code=MO%) 6.8 % 0.0-10.0 EOSINOPHIL % (test code=EO%) 6.6 % 0.0-5.0 BASOPHIL % (test code=BA%) 1.1 % 0.0-1.0 NUCLEATED RBC % (test code=NRBC%) 0.0 % 0-0 NEUTROPHIL # (test code=NT#) 3.67 K/mm3 1.8-7.7 IMMATURE GRANULOCYTE # (test code=IG#) 0.03 x10 3/uL 0-0.03 LYMPHOCYTE # (test code=LY#) 1.62 K/mm3 1.0-5.0 MONOCYTE # (test code=MO#) 0.42 K/mm3 0-0.8 EOSINOPHIL # (test code=EO#) 0.41 K/mm3 0.0-0.5 BASOPHIL # (test code=BA#) 0.07 K/mm3 0.0-0.2 NUCLEATED RBC # (test code=NRBC#) 0.00 K/mm3 0.0-0.1 MANUAL DIFF REQUIRED (test code=MDIFF) NO, ONLY SCAN NEEDED DIFFERENTIAL [id number] 14:52:00* Test Item Value Reference Range Comments STAIN ACCEPTABILITY (test code=STN ACCEPTABLE) STAIN ACCEPTABLE POLYCHROMASIA (test code=POLC) 1+ HYPOCHROMIA (test code=HYPO) 1+ POIKILOCYTOSIS (test code=POIK) 1+ ANISOCYTOSIS (test code=ANISO) 1+ PLATELET ESTIMATE (test code=PLTEST) ADEQUATE PLATELET MORPHOLOGY (test code=PLTMORPH) NORMAL CBC W/AUTO [id number] 14:25:00* Test Item Value Reference Range Comments WHITE BLOOD CELL (test code=WBC) 6.2 K/mm3 4.5-12.5 RED BLOOD CELL (test code=RBC) 3.10 mill/mm3 3.7-5.2 HEMOGLOBIN (test code=HGB) 8.3 gram/dL 11.5-15.5 HEMATOCRIT (test code=HCT) 28.0 % 36.0-46.0 MEAN CELL VOLUME (test code=MCV) 90.3 fL 80-98 MEAN CELL HGB (test code=MCH) 26.8 picogram 27.0-33.0 MEAN CELL HGB CONCETRATION (test code=MCHC) 29.6 gram/dL 33.0-36.0 RED CELL DISTRIBUTION WIDTH (test code=RDW) 15.9 % 11.6-16.2 RED CELL DISTRIBUTION WIDTH SD (test code=RDW-SD) 52.0 fL 37.0-51.0 PLATELET COUNT (test code=PLT) 417 K/mm3 150-450 MEAN PLATELET VOLUME (test code=MPV) 9.1 fL 6.7-11.0 NEUTROPHIL % (test code=NT%) 59.0 % 39.0-69.0 IMMATURE GRANULOCYTE % (test code=IG%) 0.5 % 0.0-5.0 LYMPHOCYTE % (test code=LY%) 26.0 % 25.0-55.0 MONOCYTE % (test code=MO%) 6.8 % 0.0-10.0 EOSINOPHIL % (test code=EO%) 6.6 % 0.0-5.0 BASOPHIL % (test code=BA%) 1.1 % 0.0-1.0 NUCLEATED RBC % (test code=NRBC%) 0.0 % 0-0 NEUTROPHIL # (test code=NT#) 3.67 K/mm3 1.8-7.7 IMMATURE GRANULOCYTE # (test code=IG#) 0.03 x10 3/uL 0-0.03 LYMPHOCYTE # (test code=LY#) 1.62 K/mm3 1.0-5.0 MONOCYTE # (test code=MO#) 0.42 K/mm3 0-0.8 EOSINOPHIL # (test code=EO#) 0.41 K/mm3 0.0-0.5 BASOPHIL # (test code=BA#) 0.07 K/mm3 0.0-0.2 NUCLEATED RBC # (test code=NRBC#) 0.00 K/mm3 0.0-0.1 MANUAL DIFF REQUIRED (test code=MDIFF) NO, ONLY SCAN NEEDED DIFFERENTIAL [id number] 14:25:00* Test Item Value Reference Range Comments STAIN ACCEPTABILITY (test code=STN ACCEPTABLE) CABOT RINGS (test code=CAB) MORPHOLOGY COMMENT (test code=MOC) PLATELET ESTIMATE (test code=PLTEST) PLATELET MORPHOLOGY (test code=PLTMORPH) CBC W/AUTO [id number] 14:25:00* Test Item Value Reference Range Comments WHITE BLOOD CELL (test code=WBC) 6.2 K/mm3 4.5-12.5 RED BLOOD CELL (test code=RBC) 3.10 mill/mm3 3.7-5.2 HEMOGLOBIN (test code=HGB) 8.3 gram/dL 11.5-15.5 HEMATOCRIT (test code=HCT) 28.0 % 36.0-46.0 MEAN CELL VOLUME (test code=MCV) 90.3 fL 80-98 MEAN CELL HGB (test code=MCH) 26.8 picogram 27.0-33.0 MEAN CELL HGB CONCETRATION (test code=MCHC) 29.6 gram/dL 33.0-36.0 RED CELL DISTRIBUTION WIDTH (test code=RDW) 15.9 % 11.6-16.2 RED CELL DISTRIBUTION WIDTH SD (test code=RDW-SD) 52.0 fL 37.0-51.0 PLATELET COUNT (test code=PLT) 417 K/mm3 150-450 MEAN PLATELET VOLUME (test code=MPV) 9.1 fL 6.7-11.0 NEUTROPHIL % (test code=NT%) 59.0 % 39.0-69.0 IMMATURE GRANULOCYTE % (test code=IG%) 0.5 % 0.0-5.0 LYMPHOCYTE % (test code=LY%) 26.0 % 25.0-55.0 MONOCYTE % (test code=MO%) 6.8 % 0.0-10.0 EOSINOPHIL % (test code=EO%) 6.6 % 0.0-5.0 BASOPHIL % (test code=BA%) 1.1 % 0.0-1.0 NUCLEATED RBC % (test code=NRBC%) 0.0 % 0-0 NEUTROPHIL # (test code=NT#) 3.67 K/mm3 1.8-7.7 IMMATURE GRANULOCYTE # (test code=IG#) 0.03 x10 3/uL 0-0.03 LYMPHOCYTE # (test code=LY#) 1.62 K/mm3 1.0-5.0 MONOCYTE # (test code=MO#) 0.42 K/mm3 0-0.8 EOSINOPHIL # (test code=EO#) 0.41 K/mm3 0.0-0.5 BASOPHIL # (test code=BA#) 0.07 K/mm3 0.0-0.2 NUCLEATED RBC # (test code=NRBC#) 0.00 K/mm3 0.0-0.1 MANUAL DIFF REQUIRED (test code=MDIFF) NO, ONLY SCAN NEEDED DIFFERENTIAL [id number] 14:25:00* Test Item Value Reference Range Comments STAIN ACCEPTABILITY (test code=STN ACCEPTABLE) CABOT RINGS (test code=CAB) MORPHOLOGY COMMENT (test code=MOC) PLATELET ESTIMATE (test code=PLTEST) PLATELET MORPHOLOGY (test code=PLTMORPH) CBC W/AUTO [id number] 14:25:00* Test Item Value Reference Range Comments WHITE BLOOD CELL (test code=WBC) 6.2 K/mm3 4.5-12.5 RED BLOOD CELL (test code=RBC) 3.10 mill/mm3 3.7-5.2 HEMOGLOBIN (test code=HGB) 8.3 gram/dL 11.5-15.5 HEMATOCRIT (test code=HCT) 28.0 % 36.0-46.0 MEAN CELL VOLUME (test code=MCV) 90.3 fL 80-98 MEAN CELL HGB (test code=MCH) 26.8 picogram 27.0-33.0 MEAN CELL HGB CONCETRATION (test code=MCHC) 29.6 gram/dL 33.0-36.0 RED CELL DISTRIBUTION WIDTH (test code=RDW) 15.9 % 11.6-16.2 RED CELL DISTRIBUTION WIDTH SD (test code=RDW-SD) 52.0 fL 37.0-51.0 PLATELET COUNT (test code=PLT) 417 K/mm3 150-450 MEAN PLATELET VOLUME (test code=MPV) 9.1 fL 6.7-11.0 NEUTROPHIL % (test code=NT%) 59.0 % 39.0-69.0 IMMATURE GRANULOCYTE % (test code=IG%) 0.5 % 0.0-5.0 LYMPHOCYTE % (test code=LY%) 26.0 % 25.0-55.0 MONOCYTE % (test code=MO%) 6.8 % 0.0-10.0 EOSINOPHIL % (test code=EO%) 6.6 % 0.0-5.0 BASOPHIL % (test code=BA%) 1.1 % 0.0-1.0 NUCLEATED RBC % (test code=NRBC%) 0.0 % 0-0 NEUTROPHIL # (test code=NT#) 3.67 K/mm3 1.8-7.7 IMMATURE GRANULOCYTE # (test code=IG#) 0.03 x10 3/uL 0-0.03 LYMPHOCYTE # (test code=LY#) 1.62 K/mm3 1.0-5.0 MONOCYTE # (test code=MO#) 0.42 K/mm3 0-0.8 EOSINOPHIL # (test code=EO#) 0.41 K/mm3 0.0-0.5 BASOPHIL # (test code=BA#) 0.07 K/mm3 0.0-0.2 NUCLEATED RBC # (test code=NRBC#) 0.00 K/mm3 0.0-0.1 MANUAL DIFF REQUIRED (test code=MDIFF) NO, ONLY SCAN NEEDED DIFFERENTIAL [id number] 14:25:00* Test Item Value Reference Range Comments STAIN ACCEPTABILITY (test code=STN ACCEPTABLE) MORPHOLOGY COMMENT (test code=MOC) PLATELET ESTIMATE (test code=PLTEST) PLATELET MORPHOLOGY (test code=PLTMORPH) CBC W/AUTO [id number] 14:25:00* Test Item Value Reference Range Comments WHITE BLOOD CELL (test code=WBC) 6.2 K/mm3 4.5-12.5 RED BLOOD CELL (test code=RBC) 3.10 mill/mm3 3.7-5.2 HEMOGLOBIN (test code=HGB) 8.3 gram/dL 11.5-15.5 HEMATOCRIT (test code=HCT) 28.0 % 36.0-46.0 MEAN CELL VOLUME (test code=MCV) 90.3 fL 80-98 MEAN CELL HGB (test code=MCH) 26.8 picogram 27.0-33.0 MEAN CELL HGB CONCETRATION (test code=MCHC) 29.6 gram/dL 33.0-36.0 RED CELL DISTRIBUTION WIDTH (test code=RDW) 15.9 % 11.6-16.2 RED CELL DISTRIBUTION WIDTH SD (test code=RDW-SD) 52.0 fL 37.0-51.0 PLATELET COUNT (test code=PLT) 417 K/mm3 150-450 MEAN PLATELET VOLUME (test code=MPV) 9.1 fL 6.7-11.0 NEUTROPHIL % (test code=NT%) 59.0 % 39.0-69.0 IMMATURE GRANULOCYTE % (test code=IG%) 0.5 % 0.0-5.0 LYMPHOCYTE % (test code=LY%) 26.0 % 25.0-55.0 MONOCYTE % (test code=MO%) 6.8 % 0.0-10.0 EOSINOPHIL % (test code=EO%) 6.6 % 0.0-5.0 BASOPHIL % (test code=BA%) 1.1 % 0.0-1.0 NUCLEATED RBC % (test code=NRBC%) 0.0 % 0-0 NEUTROPHIL # (test code=NT#) 3.67 K/mm3 1.8-7.7 IMMATURE GRANULOCYTE # (test code=IG#) 0.03 x10 3/uL 0-0.03 LYMPHOCYTE # (test code=LY#) 1.62 K/mm3 1.0-5.0 MONOCYTE # (test code=MO#) 0.42 K/mm3 0-0.8 EOSINOPHIL # (test code=EO#) 0.41 K/mm3 0.0-0.5 BASOPHIL # (test code=BA#) 0.07 K/mm3 0.0-0.2 NUCLEATED RBC # (test code=NRBC#) 0.00 K/mm3 0.0-0.1 MANUAL DIFF REQUIRED (test code=MDIFF) NO, ONLY SCAN NEEDED DIFFERENTIAL [id number] 14:25:00* Test Item Value Reference Range Comments STAIN ACCEPTABILITY (test code=STN ACCEPTABLE) CABOT RINGS (test code=CAB) MORPHOLOGY COMMENT (test code=MOC) PLATELET ESTIMATE (test code=PLTEST) PLATELET MORPHOLOGY (test code=PLTMORPH)
--- OUTSIDE RECORDS SUMMARY | 2018-11-23 12:03 | XMS REPORT | Clinical Summary ---
Author Author Dunaway Mandaen Organization [facility] Address Unknown Phone Unavailable Care Team Providers Care Fee Clerk Name Role Phone Asked, No Pcp PCP [...] Maha, MD Bronchopneumonia (Primary Dx); Hypokalemia 08/02/2018 [facility] General Internal Medicine - Encounter 08/06/2018 Hay Lynch MD COPD exacerbation (HCC) (Primary Dx) 05/24/2018 Emergency Emergency Medicine - 05/25/2018 Reuben Michael MD Nausea and vomiting, intractability of vomiting [...] MMODE SPECTRAL 3:57 PM CDT COLOR DOPPLER ([id number]) TROPONIN Timed 08/02/2018 1:31 PM CDT BLOOD [...] CDT) Sputum culture Normal oral octavio isolated. BISHOP isolate Comment: CATHOLIC Specimen Information HOSPITAL Specimen Source: Sputum Specimen Site: Expectorated Specimen Sputum - Expectorated Performing Organization Address City/State/Zipcode Phone Number [facility] [place] [address] PATHOLOGY AND GENOMIC MEDICINE BISHOP CATHOLIC [address] [place] [address] HOSPITAL * Gram stain (08/06/2018 9:08 AM CDT) Only the most recent of 2 results within the time period is included. [facility] Gram stain Few WBC's BISHOP isolate Few epithelial cells CATHOLIC Rare Gram positive rods [facility] Comment: Specimen Information Specimen Source: Sputum Specimen Site: Expectorated Specimen Sputum - Expectorated Performing Organization Address City/[facility] Phone [facility] [place] [address] PATHOLOGY AND GENOMIC MEDICINE BISHOP CATHOLIC [address] [place] [address] HOSPITAL * [place] Esophagram Complete (08/06/2018 8:35 AM CDT) Specimen Narrative Performed At EXAMINATION:[place] ESOPHAGRAM COMPLETE [facility] CLINICAL HISTORY:Dysphagiaunexplained COMPARISON:None. Fluoroscopy time: 1 minute 9 seconds. 21 exposures FINDINGS: The patient swallowed air producing granules and barium without difficulty. The esophagus demonstrates normal motility. No focal mucosal abnormality is identified. There is no evidence of stricture. The esophagogastric junction is unremarkable. Mild gastroesophageal reflux. IMPRESSION: Mild gastroesophageal reflux. Otherwise unremarkable esophagram. [id number] Procedure Note Interface, Radiology Results Incoming - [...] IMPRESSION: Mild gastroesophageal reflux. Otherwise unremarkable esophagram. [id number] Performing Organization Address City/State/Zipcode Phone Number [address] [address] * Estimated GFR (08/06/2018 4:35 AM CDT) Only the most recent of 6 results within the time period is included. [facility] Estimated GFR >=90 mL/min/1.73 m2 BISHOP Comment: [facility] rpretation G1 >=90 Normal or high G2 60-89Mildly decreased [id number] Mildly to moderately decreased V8x57-23 Moderately to severely decreased G4 15-29Severely decreased G5 <15Kidney failure The eGFR was calculated using the Chronic Kidney Disease Epidemiology Collaboration (CKD-EPI) equation. Interpretation is based on recommendations of the National Kidney Foundation-Kidney Disease Outcomes Quality Initiative (NKF-KDOQI) published in 2014. Specimen Plasma specimen Performing Organization Address City/State/Zipcode Phone Number [facility] DEPARTMENT [id number] [place] [address] [place] [address] PATHOLOGY AND GENOMIC MEDICINE [facility] [id number] [place] [address] [place] [address] [facility] * CBC with platelet and differential (08/06/2018 4:35 AM CDT) Only the most recent of 6 results within the time period is included. [facility] WBC 7.02 4.50 - 11.00 k/uL [facility] RBC 3.46 (L) 4.20 - 5.50 m/uL [facility] HGB 9.6 (L) 12.0 - 16.0 g/dL [facility] HCT 31.2 (L) 37.0 - 47.0 % [facility] MCV 90.2 82.0 - 100.0 fL [facility] MCH 27.7 27.0 - 34.0 pg [facility] MCHC 30.8 (L) 31.0 - 37.0 g/dL [facility] RDW - SD 49.3 37.0 - 55.0 fL [facility] MPV 9.4 8.8 - 13.2 fL [facility] Platelet count 378 150 - 400 k/uL [facility] Nucleated RBC 0.00 /100 WBC [facility] Neutrophils 78.7 (H) 39.0 - 69.0 % [facility] Lymphocytes 16.1 (L) 25.0 - 45.0 % [facility] Monocytes 3.8 0.0 - 10.0 % [facility] Eosinophils 0.0 0.0 - 5.0 % [facility] Basophils 0.1 0.0 - 1.0 % [facility] Specimen Blood Performing Organization Address City/[facility] Phone Number [facility] [address] [place] [address] PATHOLOGY AND GENOMIC MEDICINE [address] * Basic metabolic panel (08/06/2018 4:35 AM CDT) Only the most recent of 3 results within the time period is included. Sodium 138 135 - 148 mEq/L [facility] Potassium 4.8 3.5 - 5.0 mEq/L [facility] Chloride 99 98 - 112 mEq/L [facility] CO2 30 24 - 31 mEq/L [facility] Anion gap 9@ANIO 7 - 15 mEq/L [facility] BUN 26 (H) 6 - 20 mg/dL [facility] Creatinine 0.60 0.50 - 0.90 mg/dL [facility] Glucose 152 (H) 65 - 99 mg/dL [facility] Calcium 9.1 8.3 - 10.2 mg/dL [facility] Specimen Plasma specimen Performing Organization Address [facility] Phone Number [address] [place] [address] PATHOLOGY AND GENOMIC MEDICINE [address] * [place] Modified Barium Swallow (08/04/2018 5:44 PM CDT) Specimen Narrative Performed At EXAMINATION:[place] MODIFIED BARIUM SWALLOW [facility] CLINICAL HISTORY:Aspirationknown or suspected, R63.3 feeding snzqethlzuP96.12 oropharyngeal stage dysphagiaGERD COMPARISON:None. Fluoroscopy time: 3 minutes 10 seconds, single image obtained FINDINGS: The patient swallowed varying consistencies of barium under direct lateral fluoroscopic evaluation. The study was performed in conjunction with speech pathology. IMPRESSION: There is transient flash laryngeal penetration with ultrathin and thin barium. No aspiration with all consistencies.. Please refer to Speech Pathology report for further details. [id number] Procedure Note Hm Interface, Radiology Results Incoming [...] to Speech Pathology report for further details. [id number] Performing Organization Address City/State/Zipcode Phone Number [facility] [address] [place] [address] * Comprehensive metabolic panel (08/03/2018 5:59 AM CDT) Only the most recent of 3 results within the time period is included. Sodium 136 135 - 148 mEq/L [facility] Potassium 4.4 3.5 - 5.0 mEq/L [facility] Chloride 100 98 - 112 mEq/L [facility] CO2 26 24 - 31 mEq/L [facility] Anion gap 10@ANIO 7 - 15 mEq/L [facility] BUN 13 6 - 20 mg/dL [facility] Creatinine 0.60 0.50 - 0.90 mg/dL [facility] Glucose 148 (H) 65 - 99 mg/dL [facility] Calcium 9.5 8.3 - 10.2 mg/dL [facility] Protein 7.7 6.3 - 8.3 g/dL BISHOP Comment: [facility] 4.6-7.0 g/dL 1 week 4.4-7.6 g/dL 7 months-1year 5.1-7.3 g/dL 1-2 years5.6-7 .5 g/dL >3 years6.0-8 .0 g/dL 18-150 6.3-8.3 g/dL Albumin 3.8 3.5 - 5.0 g/dL [facility] A/G ratio 1.0 0.7 - 3.8 [facility] Alkaline 79 35 - 104 U/L BISHOP phosphatase [facility] AST 8 (L) 10 - 35 U/L [facility] ALT 8 5 - 50 U/L [facility] Total bilirubin <0.2 0.0 - 1.2 mg/dL [facility] Specimen Plasma specimen Performing Organization Address City/[facility] Phone Number [facility] DEPARTMENT OF [address] [place] [address] [place] [address] PATHOLOGY AND GENOMIC MEDICINE [address] * Troponin (08/02/2018 6:20 PM CDT) Only the most recent of 5 results within the time period is included. Troponin <0.006 0.000 - 0.040 ng/mL BISHOP Comment: [facility] changed methodology effective: 07/08/2018 at 10:00 am The new method has a 99th percentile cutoff of 0.040 ng/mL Specimen Plasma specimen Performing Organization Address [facility] Phone Number [address] [place] [address] PATHOLOGY AND [facility] MEDICINE [address] * CT Angiogram Pe Chest (08/02/2018 [...] lymph nodes. No evidence of pulmonary embolus. [id number] Procedure Note [facility], Radiology Results Incoming - 08/02/2018 7:58 PM [...] lymph nodes. No evidence of pulmonary embolus. [id number] Performing Organization Address City/State/Zipcode Phone Number [facility] [address] [place] [address] * Echocardiogram complete w contrast and 3D [...] 6.30 mmHg [facility] MV Peak E Jsoe 0.86 m/s [facility] MV stenosis 50.39 [...] LV EF,BP 53.32 % [facility] [place],d A2C 7.49 cm [facility] [place],d A4C 6.93 cm [facility] [place],s A2C 6.48 cm [facility] [place],s A4C 6.32 cm [facility] LV SV,A2C [...] Organization Address City/State/Zipcode Phone Number [facility] [address] [place] [address] * Blood culture, aerobic & anaerobic (08/02/2018 11:45 AM CDT) Only the most recent of 2 results within the time period is included. Blood culture No growth after 5 days of BISHOP isolate incubation. CATHOLIC Comment: HOSPITAL Specimen Information Specimen Source: Blood Specimen Site: Antecubital, right Specimen Blood - Antecubital, right Performing Organization Address [facility]/Zipcode Phone Number [facility] DEPARTMENT OF [address] [place] [address] PATHOLOGY AND GENOMIC MEDICINE [address] * XR Chest 1 Vw Portable [...] or pneumothorax. Visualized osseous structures are intact. [facility]-[id number] Procedure Note Hm Interface, Radiology Results Incoming - 08/02/2018 10:40 AM CDT EXAMINATION: XR CHEST 1 VW PORTABLE CLINICAL HISTORY: SOB COMPARISON: 05/24/2018 IMPRESSION: Lungs are hyperinflated and emphysematous. There are new interstitial infiltrates in the mid and lower lung zone suggesting bronchopneumonia. Heart size is normal. There is no effusion or pneumothorax. Visualized osseous structures are intact. [facility]-[id number] Performing Organization Address [facility] Phone Number [facility] [address] [place] [address] * B natriuretic peptide (08/02/2018 10:09 AM CDT) Only the most recent of 3 results within the time period is included. BNP 6 0 - 100 pg/mL [facility] Specimen Blood Performing Organization Address City/[facility]/Zipcode Phone Number [facility] [place] [id number] [place] [address] [place] [address] PATHOLOGY AND GENOMIC MEDICINE [address] * ECG ED Preliminary Interpretation - [...] ED Physician in the absence of a production service manager: yes Interpretation: Interpretation: normal Rate: ECG rate:88 [...] MUSE rate Atrial rate 88 [facility] MUSE IA interval 130 [facility] MUSE QRSD interval 90 [...] Specimen Narrative Performed At Performing Organization Address City/[facility] Phone Number [facility] MUSE [address] [place] [address] * Partial thromboplastin time, activated (05/25/2018 12:00 AM CDT) Pathologist [facility] PTT 34.0 23.0 - 36.0 sec BISHOP Comment: CATHOLIC [facility] PTT therapeutic range for [facility] unfractionated heparin is 61.0-112.0 seconds which corresponds to Anti-Xa 0.3-0.7 U/ml. Specimen Blood Performing Organization Address City/[facility]/Zipcode [place] [address] [place] [address] PATHOLOGY AND GENOMIC MEDICINE [facility] [id number] [place] [address] [place] [address] [facility] * Prothrombin time with INR (05/25/2018 12:00 AM CDT) Pathologist [facility] Prothrombin 15.2 (H) 11.5 - 14.5 sec [facility] INR 1.2 BISHOP Comment: CATHOLIC ST The International Normalized [facility] Ratio (INR) is a therapeutic monitoring tool for patients who are stable on oral anticoagulant therapy. An INR of 2.0-3.0 is suggested for deep vein thrombosis/pulmonary embolism. Specimen Blood Performing Organization Address [facility]/Zipcode Phone Number [facility] [id number] [place] [address] [place] [address] PATHOLOGY AND GENOMIC MEDICINE [facility] [id number] [place] [address] * D-dimer (05/25/2018 12:00 AM CDT) D-dimer 0.35 0.00 - 0.40 ug/mL BISHOP Comment: [facility] Units are ug/ml Fibrinogen [facility] Equivalent Unit. When combined with low clinical [...] and malignancies. Specimen Blood Performing Organization Address [facility]/Zipcode Phone Number [facility] OF [address] [place] [address] [place] [address] PATHOLOGY AND GENOMIC MEDICINE [address] * XR Chest 2 Vw (05/24/2018 11:52 PM CDT) Specimen Narrative Performed At EXAMINATION: XR CHEST 2 VW [facility] CLINICAL HISTORY: Chest pain COMPARISON:12/03/2017. IMPRESSION: Biapical pleural-parenchymal scarring. Mild interstitial prominence is stable, likely related to chronic change. The lungs are otherwise clear. No pleural effusion or pneumothorax. The cardiomediastinal silhouette is normal. No acute osseous abnormalities. [id number] Procedure Note Hm Interface, Radiology Results Incoming - 05/25/2018 12:01 AM CDT EXAMINATION: XR CHEST 2 VW CLINICAL HISTORY: Chest pain COMPARISON: 12/03/2017. IMPRESSION: Biapical pleural-parenchymal scarring. Mild interstitial prominence is stable, likely related to chronic change. The lungs are otherwise clear. No pleural effusion or pneumothorax. The cardiomediastinal silhouette is normal. No acute osseous abnormalities. [id number] Performing Organization Address City/State/Zipcode Phone Number [facility] [address] [place] [address] * CT Abdomen Pelvis W Contrast (12/03/2017 [...] abnormality identified in the abdomen or pelvis. [facility]-[id number] Procedure Note Interface, Radiology Results Incoming - [...] abnormality identified in the abdomen or pelvis. [facility]-[id number] Performing Organization Address City/State/Zipcode Phone Number [facility] [address] [place] [address] * Influenza antigen (12/03/2017 9:54 PM CDT) [facility] Influenza Negative for Influenza A/B [facility] antigen antigen. DEPARTMENT OF Comment: PATHOLOGY AND Specimen Information GENOMIC Specimen Source: [facility] Specimen Site: Other Specimen Nar - Other- Detailed Description Required Performing Organization Address City/[facility]/Zipcode Phone Number [facility] DEPARTMENT [address] [place] [address] PATHOLOGY AND GENOMIC MEDICINE * Urinalysis screen and microscopy, with reflex to culture (12/03/2017 9:53 PM CDT) Pathologist [facility] Specimen site Clean catch [facility] DEPARTMENT OF PATHOLOGY AND GENOMIC MEDICINE Color, UA Yellow [facility] DEPARTMENT OF PATHOLOGY AND GENOMIC MEDICINE Appearance, UA Slightly-Cloudy [facility] DEPARTMENT OF PATHOLOGY AND GENOMIC MEDICINE Specific 1.012 1.001 - 1.035 [facility] gravity, DEPARTMENT OF PATHOLOGY AND GENOMIC MEDICINE pH, UA 5.0 5.0 - 8.5 [facility] DEPARTMENT OF PATHOLOGY AND GENOMIC MEDICINE Protein, UA Negative Negative [facility] DEPARTMENT OF PATHOLOGY AND GENOMIC MEDICINE Glucose, UA Negative Negative [facility] DEPARTMENT OF PATHOLOGY AND GENOMIC MEDICINE Ketones, UA Negative Negative [facility] DEPARTMENT OF PATHOLOGY AND GENOMIC MEDICINE Bilirubin, UA Negative Negative [facility] DEPARTMENT OF PATHOLOGY AND GENOMIC MEDICINE Blood, UA Negative Negative [facility] DEPARTMENT OF PATHOLOGY AND GENOMIC MEDICINE Nitrite, UA Negative Negative [facility] DEPARTMENT OF PATHOLOGY AND GENOMIC MEDICINE Urobilinogen, Negative <2.0 [facility] DEPARTMENT OF PATHOLOGY AND GENOMIC MEDICINE Leukocyte Small (A) Negative [facility] esterase, DEPARTMENT OF PATHOLOGY AND GENOMIC MEDICINE Epithelial Few /HPF [facility] cells, UA DEPARTMENT OF PATHOLOGY AND GENOMIC MEDICINE WBC, UA 0-5 0 - 4 /HPF [facility] DEPARTMENT OF PATHOLOGY AND GENOMIC MEDICINE RBC, UA 0-5 0 - 5 /HPF [facility] DEPARTMENT OF PATHOLOGY AND GENOMIC MEDICINE Bacteria, UA None seen None seen [facility] DEPARTMENT OF PATHOLOGY AND GENOMIC MEDICINE Yeast, UA None seen [facility] DEPARTMENT OF PATHOLOGY AND GENOMIC MEDICINE Yeast with None seen [facility] pseudohyphae, DEPARTMENT OF PATHOLOGY AND GENOMIC MEDICINE Specimen Urine Performing Organization Address City/[facility] Phone Number [address] [place] [address] PATHOLOGY AND GENOMIC MEDICINE * Urine culture (12/03/2017 9:53 PM CDT) Pathologist [facility] Urine culture Mixed Gram positive octavio [facility] DEPARTMENT isolate 10-2 cfu/ml OF PATHOLOGY (A) AND GENOMIC Comment: MEDICINE Specimen Information Specimen Source: Urine Specimen Site: Clean catch Specimen Urine Performing Organization Address City/[facility] [place] [address] PATHOLOGY AND GENOMIC MEDICINE * Lipase level (12/03/2017 9:53 PM CDT) Pathologist [facility] Lipase 13 13 - 60 U/L [facility] DEPARTMENT OF PATHOLOGY AND GENOMIC MEDICINE Specimen Plasma specimen Performing Organization Address [facility] Phone Number [address] [place] [address] PATHOLOGY AND GENOMIC MEDICINE * Hepatic function panel (12/03/2017 9:53 PM CDT) Pathologist [facility] Albumin 4.1 3.5 - 5.0 g/dL [facility] DEPARTMENT OF PATHOLOGY AND GENOMIC MEDICINE Total bilirubin <0.2 0.0 - 1.2 mg/dL [facility] DEPARTMENT OF PATHOLOGY AND GENOMIC MEDICINE Bilirubin <0.1 0.0 - 0.3 mg/dL [facility] direct DEPARTMENT OF PATHOLOGY AND GENOMIC MEDICINE Alkaline 84 35 - 104 U/L [facility] phosphatase DEPARTMENT OF PATHOLOGY AND GENOMIC MEDICINE Protein 8.2 6.3 - 8.3 g/dL [facility] Comment: DEPARTMENT OF PATHOLOGY AND 4.6-7.0 g/dL GENOMIC 1 MEDICINE week 4.4-7.6 g/dL 7 months-1year 5.1-7.3 g/dL 1-2 years5.6-7 .5 g/dL >3 years6.0-8 .0 g/dL 18-150 6.3-8.3 g/dL ALT 9 5 - 50 U/L [facility] DEPARTMENT OF PATHOLOGY AND GENOMIC MEDICINE AST 17 10 - 35 U/L [facility] DEPARTMENT OF PATHOLOGY AND GENOMIC MEDICINE Specimen Plasma specimen Performing Organization Address City/State/Zipcode [place] Number [place] [address] [place] [address] PATHOLOGY AND GENOMIC MEDICINE after 11/22/2017 Insurance Type Payer Benefit Subscriber ID Effective Phone Address Plan / Dates Group O [facility] MEDICAID [facility] xxxxxxxxx 2011- COMM STAR+ Present [address] DR THOMPSON [address] [place] [address] (Home) [place] [address] Advance Directives For more information, please contact: [phone] Patient Family Worker Explanation Type Date Recorded Advance Directives, 05/24/2018 10:59 PM Living Will and Medical Power of Practice Representative Date Inactivated Comments Code Status Date Activated 08/06/2018 9:12 PM Full Code 08/02/2018 12:16 PM Code Status decision reached by: Patient 06/16/2016 2:05 PM Full Code 06/14/2016 6:16 PM Code Status decision reached by: Patient
[2018-11-23] MEDS ORDERED: ALBUTEROL/IPRATROPIUM 3 ML NEB NEB ONE (12:15)
[2018-11-23] MEDS ORDERED: CEFTRIAXONE SOD 1 GM/NS 50 ML 50 ML IV ONE (12:30)
[2018-11-23 12:39] LABS: BASOPHILS # (AUTO) 0.1 (0.0-0.1); BASOPHILS % 0.2 % (0.0-1.0); EOSINOPHILS % 0.1 % (0.0-6.0); HEMATOCRIT 32.4 % (34.2-44.1); HEMOGLOBIN 10.1 g/dL (12.0-16.0); LYMPHOCYTES # (AUTO) 0.6 (1.0-3.2); LYMPHOCYTES % 1.8 % (18.0-39.1); MEAN CORPUSCULAR HEMOGLOBIN 25.6 pg (28-32); MEAN CORPUSCULAR HGB CONC 31.2 g/dL (31-35); MEAN CORPUSCULAR VOLUME 82.2 fL (81-99); MONOCYTES # (AUTO) 1.3 (0.2-0.8); MONOCYTES % 3.9 % (4.4-11.3); NEUTROPHILS # (AUTO) 30.5 (2.1-6.9); NEUTROPHILS % 89.9 % (38.7-80.0); PLATELET COUNT 788 x10e3/uL (140-360); RED BLOOD COUNT 3.94 x10e6/uL (3.6-5.1); RED CELL DISTRIBUTION WIDTH 14.7 % (11.7-14.4)
[2018-11-23] MEDS ORDERED: IBUPROFEN 600 MG TAB PO NR (12:45)
[2018-11-23] MEDS ORDERED: AZITHROMYCIN 500MG/NS 250 ML 250 ML IV ONE (12:45)
[2018-11-23 12:46] LABS: BILIRUBIN,URINE NEGATIVE (NEGATIVE); CLARITY,URINE CLEAR (CLEAR); COLOR,URINE YELLOW (YELLOW); KETONES,URINE NEGATIVE (NEGATIVE); LEUKOCYTE ESTERASE ,URINE NEGATIVE (NEGATIVE); NITRITE,URINE NEGATIVE (NEGATIVE); PROTEIN,URINE DIPSTICK TRACE (NEGATIVE); URINE UROBILINOGEN 0.2 mg/dL (0.2 - 1)
[2018-11-23 12:47] LABS: INR 1.3; PROTHROMBIN TIME 16.8 seconds (11.9-14.5)
[2018-11-23] MEDS ORDERED: METHYLPREDNISOLONE SOD SUCC 125 MG/2ML VIAL IV STA (12:47)
[2018-11-23] MEDS ORDERED: SODIUM CHLORIDE 0.9% 1000ML 1,000 ML IV STA (12:52)
[2018-11-23 12:58] LABS: ALANINE AMINOTRANSFERASE 6 IU/L (0-55); ALBUMIN 2.4 g/dL (3.5-5.0); ALBUMIN/GLOBULIN RATIO 0.5 (0.8-2.0); ALKALINE PHOSPHATASE 132 IU/L (40-150); ANION GAP 14.3 mmol/L (8-16); BLOOD UREA NITROGEN 16 mg/dL (7-26); BUN/CREATININE RATIO 16 (6-25); CALCIUM 10.2 mg/dL (8.4-10.2); CARBON DIOXIDE 27 mmol/L (22-29); CHLORIDE 102 mmol/L (98-107); CREATININE, SERUM 1.02 mg/dL (0.57-1.11); EST GLOMERULAR FILTRATION RATE 56 ML/MIN (60-); GLUCOSE 126 mg/dL (74-118); SODIUM 141 mmol/L (136-145)
[2018-11-23] MEDS ORDERED: ONDANSETRON HCL INJ 2MG/ML 2ML 2 MG/ML VIAL IV NR (13:00)
[2018-11-23] MEDS ORDERED: MORPHINE SULFATE 2 MG/ML SYR 1ML IV NR (13:00)
[2018-11-23 13:02] LABS: AMPHETAMINES SCREEN,URINE NEGATIVE (NEGATIVE); BACTERIA,URINE FEW /HPF; BENZODIAZEPINES SCREEN,URINE POSITIVE (NEGATIVE); EPITHELIAL CELLS,URINE FEW /LPF; MUCUS,URINE MANY (RARE); PHENCYCLIDINE SCREEN,URINE NEGATIVE (NEGATIVE); RBC,URINE 0-5 /HPF (0-5)
[2018-11-23 13:05] LABS: CREATINE KINASE < 7 IU/L (29-168); POTASSIUM 2.3 mmol/L (3.5-5.1)
[2018-11-23 13:06] LABS: INFLUENZAE A&B ANTIGEN (RAPID) NEGATIVE (NEGATIVE); STREPTOCOCCUS GRP A ANTIGEN NEGATIVE (NEGATIVE)
--- NOTE | 2018-11-23 13:25 | Diagnostic Imaging Report ---
EXAMINATION: PA and lateral views of the chest. COMPARISON: None CLINICAL HISTORY: Pneumonia, shortness of breath, chest pain DISCUSSION: The lungs are hyperinflated. There is right hemithoracic volume loss with ipsilateral mediastinal shift. Patchy consolidation predominantly posteriorly within the right upper lobe with multiple air bronchograms. Symmetric nodular opacities project over the lung bases compatible with nipple shadows. Heart size is normal. No overt pulmonary edema. No acute osseous abnormality. Upper abdominal surgical clips are seen on the lateral radiograph. IMPRESSION: Right upper lobe consolidation compatible with pneumonia. However, short-term follow-up chest radiograph (4 weeks) or CT scan of the chest is suggested to document resolution and exclude presence of underlying mass lesion, particularly in the setting of emphysematous lungs with right hemithoracic volume loss. Signed by: Dr. Marv Noriega M.D. on 11/23/2018 1:21 PM
[2018-11-23] MEDS ORDERED: KCL 20MEQ/.9 SOD CHL 1,000 ML IV ONE (13:30)
[2018-11-23] MEDS ORDERED: POTASSIUM CHLORIDE 20 MEQ TAB CR PO NR (13:30)
[2018-11-23] MEDS ORDERED: KCL 20MEQ/.9 SOD CHL 1,000 ML IV SCH (13:45)
[2018-11-23] MEDS ORDERED: VANCOMYCIN 1GM/NS 250 ML 250 ML IV ONE (13:45)
[2018-11-23] MEDS: SODIUM CHLORIDE 0.9% 1000ML 1,000 ML IV SCH ×2 (13:57→21:18)
[2018-11-23] MEDS ORDERED: CEFEPIME HCL 2 GM/SOD CHL 0.9% 100 ML BAG IV SCH (14:00)
[2018-11-23] MEDS ORDERED: DONNATAL/LIDOCAINE/MAALOX 30 ML SUSP PO ONE (14:00)
[2018-11-23] MEDS: IPRATROPIUM BROMIDE 0.02% 2.5 ML NEB NEB SCH ×3 (14:00→23:15)
--- OUTSIDE RECORDS SUMMARY | 2018-11-23 14:02 | XMS REPORT | Clinical Summary ---
Author Author [facility] Organization [place] [facility] Address Unknown Phone Unavailable Care Team Providers Care Civil Rights Investigator Name Role Phone Asked, No Pcp PCP [...] Maha, MD Bronchopneumonia (Primary Dx); Hypokalemia 08/02/2018 [facility] General Internal Medicine - Encounter 08/06/2018 [place] [...] MMODE SPECTRAL 3:57 PM CDT COLOR DOPPLER ([id number]) TROPONIN Timed 08/02/2018 1:31 PM CDT BLOOD [...] CDT) Sputum culture Normal oral octavio isolated. [place] isolate Comment: SCIENTOLOGIST Specimen Information HOSPITAL Specimen Source: Sputum Specimen Site: Expectorated Specimen Sputum - Expectorated Performing Organization Address City/State/Zipcode Phone Number [facility] [place] [place] [address] PATHOLOGY AND GENOMIC MEDICINE [place] SCIENTOLOGIST [address] [place] [address] HOSPITAL * Gram stain (08/06/2018 9:08 AM CDT) Only the most recent of 2 results within the time period is included. [facility] Gram stain Few WBC's [place] isolate Few epithelial cells SCIENTOLOGIST Rare Gram positive rods [facility] Comment: Specimen Information Specimen Source: Sputum Specimen Site: Expectorated Specimen Sputum - Expectorated Performing Organization Address City/[facility] Phone Number [facility] [place] [address] PATHOLOGY AND GENOMIC MEDICINE [place] SCIENTOLOGIST [address] [place] [address] HOSPITAL * [place] Esophagram Complete (08/06/2018 8:35 AM CDT) Specimen Narrative Performed At EXAMINATION:[place] ESOPHAGRAM COMPLETE [facility] CLINICAL HISTORY:Dysphagiaunexplained COMPARISON:None. Fluoroscopy time: 1 minute 9 seconds. 21 exposures FINDINGS: The patient swallowed air producing granules and barium without difficulty. The esophagus demonstrates normal motility. No focal mucosal abnormality is identified. There is no evidence of stricture. The esophagogastric junction is unremarkable. Mild gastroesophageal reflux. IMPRESSION: Mild gastroesophageal reflux. Otherwise unremarkable esophagram. [id number] Procedure Note Interface, Radiology Results Incoming - [...] IMPRESSION: Mild gastroesophageal reflux. Otherwise unremarkable esophagram. [id number] Performing Organization Address City/State/Zipcode Phone Number [address] [address] * Estimated GFR (08/06/2018 4:35 AM CDT) Only the most recent of 6 results within the time period is included. [facility] Estimated GFR >=90 mL/min/1.73 m2 [place] Comment: [facility] rpretation G1 >=90 Normal or high G2 60-89Mildly decreased G5e24-48 Mildly to moderately decreased F2v89-05 Moderately to severely decreased G4 15-29Severely decreased G5 <15Kidney failure The eGFR was calculated using the Chronic Kidney Disease Epidemiology Collaboration (CKD-EPI) equation. Interpretation is based on recommendations of the National Kidney Foundation-Kidney Disease Outcomes Quality Initiative (NKF-KDOQI) published in 2014. Specimen Plasma specimen Performing Organization Address City/State/Zipcode Phone Number [facility] DEPARTMENT [id number] [place] [address] [place] [address] PATHOLOGY AND GENOMIC MEDICINE [facility] [id number] [place] [address] [place] [address] [facility] * CBC with platelet and differential (08/06/2018 4:35 AM CDT) Only the most recent of 6 results within the time period is included. [facility] WBC 7.02 4.50 - 11.00 k/uL [facility] RBC 3.46 (L) 4.20 - 5.50 m/uL [facility] HGB 9.6 (L) 12.0 - 16.0 g/dL [facility] HCT 31.2 (L) 37.0 - 47.0 % [facility] MCV 90.2 82.0 - 100.0 fL [facility] MCH 27.7 27.0 - 34.0 pg [facility] MCHC 30.8 (L) 31.0 - 37.0 g/dL [facility] RDW - SD 49.3 37.0 - 55.0 fL [facility] MPV 9.4 8.8 - 13.2 fL [facility] Platelet count 378 150 - 400 k/uL [facility] Nucleated RBC 0.00 /100 WBC [facility] Neutrophils 78.7 (H) 39.0 - 69.0 % [facility] Lymphocytes 16.1 (L) 25.0 - 45.0 % [facility] Monocytes 3.8 0.0 - 10.0 % [facility] Eosinophils 0.0 0.0 - 5.0 % [facility] Basophils 0.1 0.0 - 1.0 % [facility] Specimen Blood Performing Organization Address City/[facility] Hospital[facility] Phone Number [facility] DE[facility] [address] [place] [address] PATHOLOGY AND GENOMIC MEDICINE [address] * Basic metabolic panel (08/06/2018 4:35 AM CDT) Only the most recent of 3 results within the time period is included. Sodium 138 135 - 148 mEq/L [facility] Potassium 4.8 3.5 - 5.0 mEq/L [facility] Chloride 99 98 - 112 mEq/L [facility] CO2 30 24 - 31 mEq/L [facility] Anion gap 9@ANIO 7 - 15 mEq/L [facility] BUN 26 (H) 6 - 20 mg/dL [facility] Creatinine 0.60 0.50 - 0.90 mg/dL [facility] Glucose 152 (H) 65 - 99 mg/dL [facility] Calcium 9.1 8.3 - 10.2 mg/dL [facility] Specimen Plasma specimen Performing Organization Address [facility] Phone Number [address] [place] [address] PATHOLOGY AND GENOMIC MEDICINE [address] * [place] Modified Barium Swallow (08/04/2018 5:44 PM CDT) Specimen Narrative Performed At EXAMINATION:[place] MODIFIED BARIUM SWALLOW [facility] CLINICAL HISTORY:Aspirationknown or suspected, R63.3 feeding [id number] oropharyngeal stage dysphagiaGERD COMPARISON:None. Fluoroscopy time: 3 minutes 10 seconds, single image obtained FINDINGS: The patient swallowed varying consistencies of barium under direct lateral fluoroscopic evaluation. The study was performed in conjunction with speech pathology. IMPRESSION: There is transient flash laryngeal penetration with ultrathin and thin barium. No aspiration with all consistencies.. Please refer to Speech Pathology report for further details. [id number] Procedure Note Hm Interface, Radiology Results Incoming [...] to Speech Pathology report for further details. [id number] Performing Organization Address City/State/Zipcode Phone Number [facility] [address] [place] [address] * Comprehensive metabolic panel (08/03/2018 5:59 AM CDT) Only the most recent of 3 results within the time period is included. Sodium 136 135 - 148 mEq/L [facility] Potassium 4.4 3.5 - 5.0 mEq/L [facility] Chloride 100 98 - 112 mEq/L [facility] CO2 26 24 - 31 mEq/L [facility] Anion gap 10@ANIO 7 - 15 mEq/L [facility] BUN 13 6 - 20 mg/dL [facility] Creatinine 0.60 0.50 - 0.90 mg/dL [facility] Glucose 148 (H) 65 - 99 mg/dL [facility] Calcium 9.5 8.3 - 10.2 mg/dL [facility] Protein 7.7 6.3 - 8.3 g/dL [place] Comment: [facility] 4.6-7.0 g/dL 1 week 4.4-7.6 g/dL 7 months-1year 5.1-7.3 g/dL 1-2 years5.6-7 .5 g/dL >3 years6.0-8 .0 g/dL 18-150 6.3-8.3 g/dL Albumin 3.8 3.5 - 5.0 g/dL [facility] A/G ratio 1.0 0.7 - 3.8 [facility] Alkaline 79 35 - 104 U/L [place] phosphatase [facility] AST 8 (L) 10 - 35 U/L [facility] ALT 8 5 - 50 U/L [facility] Total bilirubin <0.2 0.0 - 1.2 mg/dL [facility] Specimen Plasma specimen Performing Organization Address City/[facility] Hospital[facility] Phone Number [facility] DEPARTMENT OF [address] [place] [address] [place] [address] PATHOLOGY AND GENOMIC MEDICINE [address] * Troponin (08/02/2018 6:20 PM CDT) Only the most recent of 5 results within the time period is included. Troponin <0.006 0.000 - 0.040 ng/mL [place] Comment: [facility] changed methodology effective: 07/08/2018 at 10:00 am The new method has a 99th percentile cutoff of 0.040 ng/mL Specimen Plasma specimen Performing Organization Address [facility] Phone Number [address] [place] [address] PATHOLOGY AND [facility] MEDICINE [address] * CT Angiogram Pe Chest (08/02/2018 [...] lymph nodes. No evidence of pulmonary embolus. [id number] Procedure Note [facility], Radiology Results Incoming - 08/02/2018 7:58 PM [...] lymph nodes. No evidence of pulmonary embolus. [facility]-[id number] Performing Organization Address City/State/Zipcode Phone Number [facility] [address] [place] [address] * Echocardiogram complete w contrast and 3D [...] LV EF,BP 53.32 % [facility] [place],d A2C 7.49 cm [facility],d A4C 6.93 cm [facility],s A2C 6.48 cm [facility],s A4C 6.32 cm [facility] LV SV,A2C [...] Organization Address City/State/Zipcode Phone Number [facility] [address] [place] [address] * Blood culture, aerobic & anaerobic (08/02/2018 11:45 AM CDT) Only the most recent of 2 results within the time period is included. Blood culture No growth after 5 days of [place] isolate incubation. SCIENTOLOGIST Comment: HOSPITAL Specimen Information Specimen Source: Blood Specimen Site: Antecubital, right Specimen Blood - Antecubital, right Performing Organization Address [facility]/Zipcode Phone Number [facility] DEPARTMENT OF [address] [place] [address] PATHOLOGY AND GENOMIC MEDICINE [address] * XR Chest 1 Vw Portable [...] or pneumothorax. Visualized osseous structures are intact. [facility]-[id number] Procedure Note Hm Interface, Radiology Results Incoming - 08/02/2018 10:40 AM CDT EXAMINATION: XR CHEST 1 VW PORTABLE CLINICAL HISTORY: SOB COMPARISON: 05/24/2018 IMPRESSION: Lungs are hyperinflated and emphysematous. There are new interstitial infiltrates in the mid and lower lung zone suggesting bronchopneumonia. Heart size is normal. There is no effusion or pneumothorax. Visualized osseous structures are intact. [facility]-[id number] Performing Organization Address [facility] Phone Number [facility] [address] [place] [address] * B natriuretic peptide (08/02/2018 10:09 AM CDT) Only the most recent of 3 results within the time period is included. BNP 6 0 - 100 pg/mL [facility] Specimen Blood Performing Organization Address City/[facility]/Zipcode Phone Number [facility] [place] [id number] [place] [address] [place] [address] PATHOLOGY AND GENOMIC MEDICINE [address] * ECG ED Preliminary Interpretation - [...] ED Physician in the absence of a museum preparator: yes Interpretation: Interpretation: normal Rate: ECG rate:88 [...] MUSE rate Atrial rate 88 [facility] MUSE MT interval 130 [facility] MUSE QRSD interval 90 [...] Specimen Narrative Performed At Performing Organization Address City/[facility] Phone Number [facility] MUSE [address] [place] [address] * Partial thromboplastin time, activated (05/25/2018 12:00 AM CDT) Pathologist [facility] PTT 34.0 23.0 - 36.0 sec [place] Comment: SCIENTOLOGIST [facility] PTT therapeutic range for [facility] unfractionated heparin is 61.0-112.0 seconds which corresponds to Anti-Xa 0.3-0.7 U/ml. Specimen Blood Performing Organization Address City/[facility]/Zipcode [place] Number [place] [address] [place] [address] PATHOLOGY AND GENOMIC MEDICINE [facility] [address] [place] [address] [place] [address] [facility] * Prothrombin time with INR (05/25/2018 12:00 AM CDT) Pathologist [facility] Prothrombin 15.2 (H) 11.5 - 14.5 sec [facility] INR 1.2 [place] Comment: SCIENTOLOGIST ST The International Normalized [facility] Ratio (INR) is a therapeutic monitoring tool for patients who are stable on oral anticoagulant therapy. An INR of 2.0-3.0 is suggested for deep vein thrombosis/pulmonary embolism. Specimen Blood Performing Organization Address [facility]/Zipcode Phone Number [facility] [place] [id number] [place] [address] [place] [address] PATHOLOGY AND GENOMIC MEDICINE [facility] [address] [place] [address] * D-dimer (05/25/2018 12:00 AM CDT) D-dimer 0.35 0.00 - 0.40 ug/mL [place] Comment: [facility] Units are ug/ml Fibrinogen [facility] Equivalent Unit. When combined with low clinical [...] and malignancies. Specimen Blood Performing Organization Address [facility]/Zipcode Phone Number [facility] OF [address] [place] [address] [place] [address] PATHOLOGY AND GENOMIC MEDICINE [address] * XR Chest 2 Vw (05/24/2018 11:52 PM CDT) Specimen Narrative Performed At EXAMINATION: XR CHEST 2 VW [facility] CLINICAL HISTORY: Chest pain COMPARISON:12/03/2017. IMPRESSION: Biapical pleural-parenchymal scarring. Mild interstitial prominence is stable, likely related to chronic change. The lungs are otherwise clear. No pleural effusion or pneumothorax. The cardiomediastinal silhouette is normal. No acute osseous abnormalities. [facility]-[id number] Procedure Note Hm Interface, Radiology Results Incoming - 05/25/2018 12:01 AM CDT EXAMINATION: XR CHEST 2 VW CLINICAL HISTORY: Chest pain COMPARISON: 12/03/2017. IMPRESSION: Biapical pleural-parenchymal scarring. Mild interstitial prominence is stable, likely related to chronic change. The lungs are otherwise clear. No pleural effusion or pneumothorax. The cardiomediastinal silhouette is normal. No acute osseous abnormalities. [facility]-[id number] Performing Organization Address City/State/Zipcode Phone Number [facility] [address] [place] [address] * CT Abdomen Pelvis W Contrast (12/03/2017 [...] abnormality identified in the abdomen or pelvis. [facility]-[id number] Procedure Note Interface, Radiology Results Incoming - [...] abnormality identified in the abdomen or pelvis. [facility]-[id number] Performing Organization Address City/State/Zipcode Phone Number [facility] [address] [place] [address] * Influenza antigen (12/03/2017 9:54 PM CDT) [facility] Influenza Negative for Influenza A/B [facility] antigen antigen. DEPARTMENT OF Comment: PATHOLOGY AND Specimen Information GENOMIC Specimen Source: [facility] Specimen Site: Other Specimen Nar - Other- Detailed Description Required Performing Organization Address City/[facility]/Zipcode Phone Number [facility] DEPARTMENT [address] [place] [address] PATHOLOGY AND GENOMIC MEDICINE * Urinalysis screen and microscopy, with reflex to culture (12/03/2017 9:53 PM CDT) Pathologist [facility] Specimen site Clean catch [facility] DEPARTMENT OF PATHOLOGY AND GENOMIC MEDICINE Color, UA Yellow [facility] DEPARTMENT OF PATHOLOGY AND GENOMIC MEDICINE Appearance, UA Slightly-Cloudy [facility] DEPARTMENT OF PATHOLOGY AND GENOMIC MEDICINE Specific 1.012 1.001 - 1.035 [facility] gravity, DEPARTMENT OF PATHOLOGY AND GENOMIC MEDICINE pH, UA 5.0 5.0 - 8.5 [facility] DEPARTMENT OF PATHOLOGY AND GENOMIC MEDICINE Protein, UA Negative Negative [facility] DEPARTMENT OF PATHOLOGY AND GENOMIC MEDICINE Glucose, UA Negative Negative [facility] DEPARTMENT OF PATHOLOGY AND GENOMIC MEDICINE Ketones, UA Negative Negative [facility] DEPARTMENT OF PATHOLOGY AND GENOMIC MEDICINE Bilirubin, UA Negative Negative [facility] DEPARTMENT OF PATHOLOGY AND GENOMIC MEDICINE Blood, UA Negative Negative [facility] DEPARTMENT OF PATHOLOGY AND GENOMIC MEDICINE Nitrite, UA Negative Negative [facility] DEPARTMENT OF PATHOLOGY AND GENOMIC MEDICINE Urobilinogen, Negative <2.0 [facility] DEPARTMENT OF PATHOLOGY AND GENOMIC MEDICINE Leukocyte Small (A) Negative [facility] esterase, DEPARTMENT OF PATHOLOGY AND GENOMIC MEDICINE Epithelial Few /HPF [facility] cells, UA DEPARTMENT OF PATHOLOGY AND GENOMIC MEDICINE WBC, UA 0-5 0 - 4 /HPF [facility] DEPARTMENT OF PATHOLOGY AND GENOMIC MEDICINE RBC, UA 0-5 0 - 5 /HPF [facility] DEPARTMENT OF PATHOLOGY AND GENOMIC MEDICINE Bacteria, UA None seen None seen [facility] DEPARTMENT OF PATHOLOGY AND GENOMIC MEDICINE Yeast, UA None seen [facility] DEPARTMENT OF PATHOLOGY AND GENOMIC MEDICINE Yeast with None seen [facility] pseudohyphae, DEPARTMENT OF PATHOLOGY AND GENOMIC MEDICINE Specimen Urine Performing Organization Address City/[facility] Phone Number [address] [place] [address] PATHOLOGY AND GENOMIC MEDICINE * Urine culture (12/03/2017 9:53 PM CDT) Pathologist [facility] Urine culture Mixed Gram positive octavio [facility] DEPARTMENT isolate 10-2 cfu/ml OF PATHOLOGY (A) AND GENOMIC Comment: MEDICINE Specimen Information Specimen Source: Urine Specimen Site: Clean catch Specimen Urine Performing Organization Address City/[facility] [place] [address] PATHOLOGY AND GENOMIC MEDICINE * Lipase level (12/03/2017 9:53 PM CDT) Pathologist [facility] Lipase 13 13 - 60 U/L [facility] DEPARTMENT OF PATHOLOGY AND GENOMIC MEDICINE Specimen Plasma specimen Performing Organization Address [facility] Phone Number [address] [place] [address] PATHOLOGY AND GENOMIC MEDICINE * Hepatic function panel (12/03/2017 9:53 PM CDT) Pathologist [facility] Albumin 4.1 3.5 - 5.0 g/dL [facility] DEPARTMENT OF PATHOLOGY AND GENOMIC MEDICINE Total bilirubin <0.2 0.0 - 1.2 mg/dL [facility] DEPARTMENT OF PATHOLOGY AND GENOMIC MEDICINE Bilirubin <0.1 0.0 - 0.3 mg/dL [facility] direct DEPARTMENT OF PATHOLOGY AND GENOMIC MEDICINE Alkaline 84 35 - 104 U/L [facility] phosphatase DEPARTMENT OF PATHOLOGY AND GENOMIC MEDICINE Protein 8.2 6.3 - 8.3 g/dL [facility] Comment: DEPARTMENT OF PATHOLOGY AND 4.6-7.0 g/dL GENOMIC 1 MEDICINE week 4.4-7.6 g/dL 7 months-1year 5.1-7.3 g/dL 1-2 years5.6-7 .5 g/dL >3 years6.0-8 .0 g/dL 18-150 6.3-8.3 g/dL ALT 9 5 - 50 U/L [facility] DEPARTMENT OF PATHOLOGY AND GENOMIC MEDICINE AST 17 10 - 35 U/L [facility] DEPARTMENT OF PATHOLOGY AND GENOMIC MEDICINE Specimen Plasma specimen Performing Organization Address City/State/Zipcode Phone Number [facility] [place] [place] [address] [address] PATHOLOGY AND GENOMIC MEDICINE after 11/22/2017 Insurance Type Payer Benefit Subscriber ID Effective Phone Address Plan / Dates Group [facility] MEDICAID [facility] xxxxxxxxx 2011- COMM STAR+ Present [address] DR THOMPSON [address] [place] [address] (Home) [place] [address] Advance Directives For more information, please contact: [phone] Patient Manager Domestic Explanation Type Date Recorded Advance Directives, 05/24/2018 10:59 PM Living Will and Medical Power of Take Up Operator Date Inactivated Comments Code Status Date Activated 08/06/2018 9:12 PM Full Code 08/02/2018 12:16 PM Code Status decision reached by: Patient 06/16/2016 2:05 PM Full Code 06/14/2016 6:16 PM Code Status decision reached by: Patient
[2018-11-23] MEDS: CEFEPIME 2 GM/NS 0.9% 100 ML 100 ML IV SCH ×2 (14:13→20:04)
[2018-11-23] MEDS ORDERED: PANTOPRAZOLE 40 MG 10ML VIAL IV NR (14:15)
--- NOTE | 2018-11-23 14:40 | History and Physical ---
CHIEF COMPLAINT: Worsening dyspnea and fevers. HISTORY OF PRESENT ILLNESS: The patient is a 58-year-old woman. She has a history of severe COPD. She also has gastritis diagnosed by endoscopy two years ago. She requires bronchodilators at home as well as intermittent steroids and antibiotics. She now comes in complaining of worsening dyspnea and congestion. She notes some fever. She has a cough productive of small amounts of phlegm. She also complains of pain in her right shoulder area. PAST MEDICAL HISTORY: 1. Gastritis. 2. COPD. 3. Psychiatric problems. PAST SURGICAL HISTORY: Noncontributory. ALLERGIES: NO KNOWN DRUG ALLERGIES. SOCIAL HISTORY: The patient recently quit smoking. She is not an active drinker. REVIEW OF SYSTEMS: CONSTITUTIONAL: The patient is afebrile. HEENT: Shows no facial swelling or erythema. The nasal mucosa is normal. The oropharynx is normal. LYMPHATIC: Shows no submandibular, cervical, or supraclavicular adenopathy. CARDIAC: Reveals regular rate and rhythm with normal S1 and S2. There are no murmurs or rubs. RESPIRATORY: Auscultation of lungs reveal clear breath sounds bilaterally. There is no wheezing. ABDOMEN: Soft and nontender. There is no rebound or guarding. EXTREMITIES: Show no leg edema or calf tenderness. There is no cyanosis or clubbing. SKIN: Shows no rashes. NEUROLOGIC: Shows no focal abnormalities. She does not complain of headache. She notes pain in the right shoulder area. She is not complaining of chest pain. She notes some dyspnea. She has nausea, but no vomiting. She has no leg edema. PHYSICAL EXAMINATION: VITAL SIGNS: The patient is afebrile. The T-max was 100.0. HEENT: Shows no facial swelling or erythema. CARDIAC: Reveals regular rate and rhythm with normal S1 and S2. There are no murmurs or rubs. RESPIRATORY: Auscultation of lungs reveal clear breath sounds bilaterally. There is no wheezing. ABDOMEN: Soft and nontender. There is no rebound or guarding. EXTREMITIES: Show no leg edema or calf tenderness. There is no cyanosis or clubbing. SKIN: Shows no rashes. NEUROLOGICAL: Shows no focal abnormalities. LABORATORY DATA: White blood cell count is 34, hemoglobin is 10.1, and the platelet count is 78. Potassium is 2.3. Lactic acid is 22.8. Other electrolytes are within normal limits. Urinalysis is within normal limits. RADIOGRAPHIC DATA: Chest x-ray shows a right upper lobe consolidation compatible with pneumonia. Underlying mass lesion could not be excluded. IMPRESSION: 1. Community-acquired pneumonia with sepsis, present on admission. 2. Chronic obstructive pulmonary disease with exacerbation. 3. Anemia secondary to chronic blood loss. 4. Hypokalemia. PLAN: 1. Begin antibiotics and monitor white blood cell count. 2. Intravenous fluids. 3. Arrange for CT scan of the chest with IV contrast. 4. Consider bronchoscopy depending on CT scan results. Cristopher Rausch MD [facility]/MODL /[id number]
[2018-11-23] MEDS: ALBUTEROL SULF 0.083% NEB SOLN 3 ML NEB NEB SCH ×3 (15:00→23:15)
[2018-11-23 15:40] VITALS: BP 98/66
[2018-11-23 15:44] VITALS: BP 98/66
--- NOTE | 2018-11-23 15:52 | Diagnostic Imaging Report ---
EXAMINATION: CT scan of the chest with contrast. TECHNIQUE: Spiral CT images of the chest were performed from the lung apices to the level of the adrenal glands after the intravenous administration of 100 cc Isovue-370. Coronal and sagittal reformatted images were obtained. COMPARISON: Same day chest radiograph CLINICAL HISTORY:Right upper lobe pneumonia DISCUSSION: LINES/TUBES: None. LUNGS AND AIRWAYS: There is dense consolidation of the right upper lobe with multiple air bronchograms in background emphysematous changes. Spiculated perifissural opacity in the right lower lobe (series 3 image 76. Wedge-shaped opacity with architectural distortion along the right lower lobe series 3 image 80. 4 mm nodule right lower lobe series 3 image 87. 4 mm groundglass nodule left lower lobe series 3 image 82. Mass effect on the right upper lobe bronchus. Otherwise trachea, mainstem bronchi, and lobar bronchi are patent. PLEURA: No pneumothorax or pleural effusions. HEART AND MEDIASTINUM: Visualized portions of the thyroid gland are normal. Atherosclerotic calcification of the aortic arch, and elem coronary arteries, and great vessel origins. This study was not optimized for detection of pulmonary emboli disease; however, the main pulmonary artery and central branch pulmonary arteries are patent. No pericardial effusion. Right upper paratracheal enhancing lymph node measures 7 mm short axis. Right lower paratracheal enhancing lymph node measures 1 cm short axis. Enhancing subcarinal lymph node measures 1.3 cm short axis area enhancing right hilar lymph node measures 1.1 cm short axis. LYMPH NODES: As above. ABDOMEN: Visualized portions of the liver, spleen, pancreas, and adrenal glands are remarkable only for mild intrahepatic biliary dilatation likely a consequence of cholecystectomy and a subcentimeter hypoattenuating lesion in hepatic segment 6 to small to further characterize but likely to represent a small cyst. BONES AND SOFT TISSUES: Chronic deformity of the proximal right humerus partially visualized. No osseous destructive lesions. Healed fracture deformity posterior left 11th rib. No focal soft tissue abnormalities. IMPRESSION: Right upper lobe consolidative pneumonia as described on comparison chest radiograph. Presumed reactive mediastinal and right hilar lymphadenopathy. Short-term follow-up CT scan of the chest (2 months) is suggested after appropriate treatment to document resolution and exclude presence of underlying mass lesion. Right lower lobe spiculated opacities and subcentimeter bilateral pulmonary nodules are indeterminate and may also be assessed for stability at that time. Severe background emphysematous changes. Atherosclerotic vascular disease. Signed by: Dr. Marv Noriega M.D. on 11/23/2018 3:48 PM
[2018-11-23] MEDS: KCL 20MEQ/.9 SOD CHL 1,000 ML IV SCH ×2 (15:55→23:06)
[2018-11-23] MEDS: NICOTINE 14 MG/EA PATCH TOP SCH (15:56)
[2018-11-23] MEDS: BENZONATATE 100 MG CAP PO PRN (15:58)
[2018-11-23 17:00] VITALS: BP 103/88
[2018-11-23 17:51] LABS: ABG HCO3 23 mmol/L (23-28); ABG PCO2 42 mmHg (41-51); ABG PH 7.34 (7.31-7.41); ABG PO2 73 mmHg (80-105)
[2018-11-23 18:00] VITALS: BP 86/62
[2018-11-23 18:05] VITALS: BP 120/75
[2018-11-23] MEDS ORDERED: SODIUM CHLORIDE 0.9% 50ML 50 ML ONE (19:09)
[2018-11-23] MEDS ORDERED: IOPAMIDOL 370 MG/ML 200 ML INFUS..BTL INJ ONE (19:09)
[2018-11-23] MEDS: ZOLPIDEM TARTRATE 5 MG TAB PO PRN (19:46)
[2018-11-23] MEDS: DIAZEPAM 5 MG TAB PO PRN (19:46)
[2018-11-23] MEDS: TRAZODONE HCL 50 MG TAB PO SCH (19:46)
[2018-11-23] MEDS ORDERED: CEFEPIME 2 GM/NS 0.9% 100 ML 100 ML IV ONE (20:01)
[2018-11-23] MEDS: MORPHINE SULFATE INJ 4 MG/ML INJ 1ML IV PRN (20:43)
[2018-11-23 21:05] VITALS: BP 95/71
[2018-11-24] VITALS (8 sets, daily range): BP systolic 86–124; BP diastolic 60–88
[2018-11-24] MEDS: DIAZEPAM 5 MG TAB PO PRN ×2 (00:11→09:45)
[2018-11-24] MEDS: BENZONATATE 100 MG CAP PO PRN ×3 (00:11→19:31)
[2018-11-24] MEDS: ONDANSETRON HCL INJ 2MG/ML 2ML 2 MG/ML VIAL IV PRN ×3 (01:53→21:25)
[2018-11-24] MEDS: MORPHINE SULFATE INJ 4 MG/ML INJ 1ML IV PRN ×4 (01:54→21:25)
[2018-11-24] MEDS: ALBUTEROL SULF 0.083% NEB SOLN 3 ML NEB NEB SCH ×6 (03:15→23:30)
[2018-11-24] MEDS: IPRATROPIUM BROMIDE 0.02% 2.5 ML NEB NEB SCH ×7 (03:15→23:30)
[2018-11-24] MEDS: SODIUM CHLORIDE 0.9% 1000ML 1,000 ML IV SCH ×3 (05:21→21:24)
[2018-11-24] MEDS: CEFEPIME 2 GM/NS 0.9% 100 ML 100 ML IV SCH ×3 (05:21→21:24)
[2018-11-24 06:32] LABS: BASOPHILS % 0.1 % (0.0-1.0); EOSINOPHILS % 0.1 % (0.0-6.0); HEMATOCRIT 23.8 % (34.2-44.1); HEMOGLOBIN 7.4 g/dL (12.0-16.0); LYMPHOCYTES # (AUTO) 0.4 (1.0-3.2); LYMPHOCYTES % 1.7 % (18.0-39.1); MEAN CORPUSCULAR HEMOGLOBIN 25.6 pg (28-32); MEAN CORPUSCULAR HGB CONC 31.1 g/dL (31-35); MEAN CORPUSCULAR VOLUME 82.4 fL (81-99); MONOCYTES # (AUTO) 0.7 (0.2-0.8); MONOCYTES % 3.1 % (4.4-11.3); NEUTROPHILS # (AUTO) 19.7 (2.1-6.9); NEUTROPHILS % 93.5 % (38.7-80.0); PLATELET COUNT 618 x10e3/uL (140-360); RED BLOOD COUNT 2.89 x10e6/uL (3.6-5.1); RED CELL DISTRIBUTION WIDTH 15.2 % (11.7-14.4)
[2018-11-24 06:53] LABS: ALANINE AMINOTRANSFERASE 6 IU/L (0-55); ALBUMIN 1.9 g/dL (3.5-5.0); ALBUMIN/GLOBULIN RATIO 0.5 (0.8-2.0); ALKALINE PHOSPHATASE 108 IU/L (40-150); BLOOD UREA NITROGEN 14 mg/dL (7-26); BUN/CREATININE RATIO 19 (6-25); CALCIUM 8.6 mg/dL (8.4-10.2); CARBON DIOXIDE 23 mmol/L (22-29); CHLORIDE 108 mmol/L (98-107); CREATINE KINASE < 7 IU/L (29-168); CREATININE, SERUM 0.73 mg/dL (0.57-1.11); EST GLOMERULAR FILTRATION RATE > 60 ML/MIN (60-); GLUCOSE 141 mg/dL (74-118); SODIUM 140 mmol/L (136-145)
--- NOTE | 2018-11-24 07:03 | Diagnostic Imaging Report ---
Examination: Single AP view of the chest. COMPARISON: CT chest 11/23/2018 INDICATION: Pneumonia IMPRESSION: 1. Lines and Tubes: None 2. Lungs are well-inflated. No interval change in right upper lobe airspace opacity/consolidation. COPD changes. Right basilar atelectatic changes are stable. 3. Cardiomediastinal silhouette is normal. Pulmonary vasculature is normal. 4. No acute bony abnormalities. Signed by: Dr. Juan Antonio Mendez M.D. on 11/24/2018 6:59 AM
[2018-11-24] MEDS: KCL 20MEQ/.9 SOD CHL 1,000 ML IV SCH (07:30)
--- NOTE | 2018-11-24 08:30 | NUR ---
SPOKE WITH PT, STATES SHE NO LONGER TAKES DEPAKOTE 500MG DAILY, STATES HER DR STOPPED THIS MEDICATION AROUND A YEAR AGO
[2018-11-24] MEDS ORDERED: PANTOPRAZOLE 40 MG 10ML VIAL IV SCH (09:00)
[2018-11-24] MEDS: DEPAKOTE DELAYED-RELEASE TAB 500 MG PO SCH (09:00)
[2018-11-24] MEDS: AZITHROMYCIN 500MG/SOD CHL 0.9% 250ML BAG IV SCH (09:45)
[2018-11-24] MEDS: PANTOPRAZOLE SOD 40 MG TABEC PO SCH (09:45)
[2018-11-24] MEDS: POTASSIUM CHLORIDE 20 MEQ TAB CR PO SCH (09:45)
[2018-11-24] MEDS ORDERED: SODIUM CHLORIDE 0.9% 250ML 250 ML ONE (09:55)
--- NOTE | 2018-11-24 10:23 | NUR ---
PT MEDICATED FOR COUGH, REPOSITIONED, DIAPER CHANGED, CALL LIGHT WITHIN REACH
--- NOTE | 2018-11-24 11:40 | NUR ---
TELEPHONED MD Queenie MORRIS TO MAKE AWARE OF PT FLUCTUATING LOW BP, ELEVATED RR, LOW HGB AT 7.4, ELEVATED WBC 21.4, AWAITING CALL BACK
--- NOTE | 2018-11-24 11:56 | NUR ---
SPOKE WITH MD Queenie MORRIS, MADE AWARE THAT BP 90/50 AT THIS TIME, BP HAS DROPPED TO 86/67, MADE AWARE OF CURRENT LABS, MADE AWARE OF RR 22-26 AND UP TO 30 CURRENTLY, MADE AWARE OF CURRENT LABS, NO NEW ORDERS AT THIS TIME, ORDERS NOTED TO NOT GIVE MORPHINE AT THIS TIME DUE TO LOW BP
--- NOTE | 2018-11-24 13:52 | NUR ---
PT WHEELED OFF UNIT FOR BRONCHOSCOPY, CURRENT BP 102/91, HR 96 AT THIS TIME
[2018-11-24] MEDS: NICOTINE 14 MG/EA PATCH TOP SCH ×2 (14:00→16:00)
[2018-11-24] MEDS ORDERED: SEVOFLURANE INHAL SOLN 250 ML PEN BTL ONE (14:17)
[2018-11-24] MEDS ORDERED: PROPOFOL IV EMULSION 10 MG/ML 20 ML VIAL ONE (14:17)
[2018-11-24] MEDS ORDERED: LIDOCAINE HCL 2% LOCAL INJ 5 ML SDV VIAL INJ ONE (14:17)
[2018-11-24] MEDS ORDERED: LIDOCAINE HCL 4% 50 ML BTL ONE (14:28)
[2018-11-24] MEDS ORDERED: MIDAZOLAM HCL 2 MG/2 ML VIAL ONE (15:02)
--- NOTE | 2018-11-24 15:57 | NUR ---
BACK IN ROOM VIA BED, AA&OX3 AT THIS TIME, TELEPHONED MD Queenie MORRIS TO CLARIFY IF AND WHEN PT CAN HAVE A DIET, AWAITING CALL BACK
--- NOTE | 2018-11-24 16:30 | NUR ---
PT WITH CONTINUOUS COUGH, TELEPHONED MD Queenie MORRIS TO CLARIFY DIET AND LET KNOW PT REQUESTING PO PAIN MEDICATIONS, AWAITING CALL BACK
[2018-11-24 16:40] LABS: BODY FLUID TYPE BRONCH LAVAGE
[2018-11-24 16:41] LABS: BODY FLUID APPEARANCE SL.CLOUDY; BODY FLUID COLOR RED; RBC,BODY FLUID 123 cells/uL; WBC,BODY FLUID 100 cells/uL
--- NOTE | 2018-11-24 17:48 | NUR ---
PT TOLERATING ICE CHIPS AND WATER AT THIS TIME, REPORTS PAIN BETTER AT 5/10, CALL LIGHT WITHIN REACH
[2018-11-24 18:23] LABS: LYMPHOCYTES,BODY FLUID 54 %; NEUTROPHILS,BODY FLUID 46 %
--- NOTE | 2018-11-24 19:00 | NUR ---
Walking rounds and report received. Patient is awake, alert and able to make needs known. Patient voiced that when she coughs her chest parson. Respirations are equal and unlabored at this time. POC discussed. Patient was instructed to call for assistance as needed and verbalized understanding. Call gomez within reach. Vital signs are stable..
[2018-11-24] MEDS: TRAZODONE HCL 50 MG TAB PO SCH (20:55)
--- NOTE | 2018-11-24 21:20 | Operative Report ---
DATE OF PROCEDURE: SURGEON: Cristopher Rausch MD PROCEDURE: Bronchoscopy with bronchoalveolar lavage. PREOPERATIVE DIAGNOSIS: Right upper lobe pneumonia. POSTOPERATIVE DIAGNOSIS: Right upper lobe pneumonia. CONSENT: Consent was obtained from the patient. ANESTHESIA: The Anesthesia Service provided MAC sedation. PROCEDURE IN DETAIL: The patient was placed in a supine position. An LMA was used to access her airway. The scope was introduced through the LMA. The upper airway was examined. It was within normal limits. Some mucus was removed from around the glottis. The scope was then introduced through the cords into the trachea. The tracheal mucosa was normal. The torrie was normal. The tracheobronchial tree was normal. The left upper lobe lingula was normal. There were no endobronchial lesions. The left lower lobe was normal. There were no endobronchial lesions. The scope was then repositioned into the right tracheobronchial tree. The right middle lobe and lower lobe within normal limits. There were no endobronchial lesions. There was a small amount of mucus in the right upper lobe. The scope was wedged and a bronchoalveolar lavage was performed. Brushings were also obtained for microbiology. COMPLICATIONS: None. ESTIMATED BLOOD LOSS: None. Cristopher Rausch MD [facility] /[id number]
[2018-11-24] MEDS: GUAIFENESIN/CODEINE 10 ML CUP PO PRN (23:22)
[2018-11-25] VITALS (7 sets, daily range): BP systolic 99–118; BP diastolic 53–91
[2018-11-25] MEDS: SODIUM CHLORIDE 0.9% 1000ML 1,000 ML IV SCH ×3 (00:18→19:35)
--- NOTE | 2018-11-25 00:30 | NUR ---
Patient with eyes closed, no distress or complaints voiced at this time. Call gomez within reach.
[2018-11-25] MEDS: ONDANSETRON HCL INJ 2MG/ML 2ML 2 MG/ML VIAL IV PRN ×4 (01:09→23:27)
[2018-11-25] MEDS: MORPHINE SULFATE INJ 4 MG/ML INJ 1ML IV PRN ×5 (01:09→23:27)
[2018-11-25] MEDS: IPRATROPIUM BROMIDE 0.02% 2.5 ML NEB NEB SCH ×6 (02:00→23:50)
[2018-11-25] MEDS: ALBUTEROL SULF 0.083% NEB SOLN 3 ML NEB NEB SCH ×6 (03:00→23:50)
[2018-11-25] MEDS: BENZONATATE 100 MG CAP PO PRN (03:08)
[2018-11-25] MEDS: DIAZEPAM 5 MG TAB PO PRN ×2 (03:08→15:09)
[2018-11-25] MEDS: CEFEPIME 2 GM/NS 0.9% 100 ML 100 ML IV SCH ×3 (05:17→22:34)
[2018-11-25 05:35] LABS: BASOPHILS % 0.3 % (0.0-1.0); EOSINOPHILS % 0.1 % (0.0-6.0); HEMATOCRIT 23.8 % (34.2-44.1); HEMOGLOBIN 7.4 g/dL (12.0-16.0); LYMPHOCYTES # (AUTO) 1.1 (1.0-3.2); LYMPHOCYTES % 7.1 % (18.0-39.1); MEAN CORPUSCULAR HEMOGLOBIN 25.8 pg (28-32); MEAN CORPUSCULAR HGB CONC 31.1 g/dL (31-35); MEAN CORPUSCULAR VOLUME 82.9 fL (81-99); MONOCYTES % 6.8 % (4.4-11.3); NEUTROPHILS # (AUTO) 12.9 (2.1-6.9); NEUTROPHILS % 84.9 % (38.7-80.0); PLATELET COUNT 688 x10e3/uL (140-360); RED BLOOD COUNT 2.87 x10e6/uL (3.6-5.1); RED CELL DISTRIBUTION WIDTH 15.7 % (11.7-14.4)
--- NOTE | 2018-11-25 05:55 | NUR ---
Spouse at the bedside visiting with patient. No complaints voiced. Call gomez within reach.
[2018-11-25] MEDS: PANTOPRAZOLE SOD 40 MG TABEC PO SCH (08:19)
[2018-11-25] MEDS: DEPAKOTE DELAYED-RELEASE TAB 500 MG PO SCH (08:19)
[2018-11-25] MEDS: AZITHROMYCIN 500MG/SOD CHL 0.9% 250ML BAG IV SCH (08:19)
[2018-11-25] MEDS: POTASSIUM CHLORIDE 20 MEQ TAB CR PO SCH (08:19)
--- NOTE | 2018-11-25 13:40 | NUR ---
Visit made by the Spiritual Care Department Pastoral Visitor, Kateryna Doyle. Pt sleeping soundly and no family present. Pastoral Visitor left a card describing availability of franchise specialist and instructions on how to contact a franchise specialist. [employer] Spiritual Care Department O: [phone] Pager: [phone] ([phone] number calling from)
--- NOTE | 2018-11-25 13:49 | Progress Note ---
DATE: SUBJECTIVE: The patient had bronchoscopy yesterday. She still has some fevers, but feels improved overall. She is not complaining of chest pain. PHYSICAL EXAMINATION: VITAL SIGNS: The T-max is 100.7, the blood pressure is 99/57, and the respiratory rate is 24. HEENT: Shows no facial swelling or erythema. CARDIAC: Reveals a regular rate and rhythm with normal S1 and S2. LUNGS: Auscultation of lungs reveals prolonged expiratory phase bilaterally. There is some wheezing. ABDOMEN: Soft and nontender. There is no rebound or guarding. EXTREMITIES: Shows no leg edema or calf tenderness. There is no cyanosis or clubbing. IMPRESSION: 1. Community-acquired pneumonia with severe sepsis, present on admission. 2. Moderate protein-calorie malnutrition. 3. Chronic obstructive pulmonary disease with exacerbation. 4. Anemia secondary to chronic blood loss. 5. Hypokalemia. PLAN: 1. Continue antibiotics. 2. Continue to replace potassium. 3. Nutritional supplements with each meal. 4. Dietary evaluation. 5. Physical therapy. MD ANUSHKA Hall/SANG /[id number]
[2018-11-25] MEDS: NICOTINE 14 MG/EA PATCH TOP SCH (15:11)
--- NOTE | 2018-11-25 19:05 | NUR ---
Patient awake, alert, oriented, but c/o pain. Able to converse with staff and use her incentive spirometry. Bedside report given to SHANELL Huntley.
[2018-11-25] MEDS: GUAIFENESIN/CODEINE 10 ML CUP PO PRN (19:12)
[2018-11-25] MEDS: ACETAMINOPHEN 325 MG TAB PO PRN (19:18)
--- NOTE | 2018-11-25 20:30 | NUR ---
Patient assisted to cleaned and changed diaper/gown/linens. Patient tolerated well. Will continue to monitor.
[2018-11-25] MEDS: TRAZODONE HCL 50 MG TAB PO SCH (20:59)
[2018-11-25] MEDS: ZOLPIDEM TARTRATE 5 MG TAB PO PRN (20:59)
[2018-11-26] VITALS (7 sets, daily range): BP systolic 95–125; BP diastolic 52–99
[2018-11-26] MEDS: SODIUM CHLORIDE 0.9% 1000ML 1,000 ML IV SCH ×2 (03:40→12:53)
[2018-11-26] MEDS: IPRATROPIUM BROMIDE 0.02% 2.5 ML NEB NEB SCH ×6 (03:50→23:45)
[2018-11-26] MEDS: ALBUTEROL SULF 0.083% NEB SOLN 3 ML NEB NEB SCH ×6 (03:50→23:45)
[2018-11-26] MEDS: MORPHINE SULFATE INJ 4 MG/ML INJ 1ML IV PRN ×3 (05:16→19:41)
[2018-11-26 05:17] LABS: BASOPHILS # (AUTO) 0.1 (0.0-0.1); BASOPHILS % 0.5 % (0.0-1.0); EOSINOPHILS # (AUTO) 0.1 (0.0-0.4); EOSINOPHILS % 1.3 % (0.0-6.0); LYMPHOCYTES # (AUTO) 1.3 (1.0-3.2); LYMPHOCYTES % 13.3 % (18.0-39.1); MEAN CORPUSCULAR HGB CONC 31.8 g/dL (31-35); MEAN CORPUSCULAR VOLUME 81.9 fL (81-99); MONOCYTES # (AUTO) 0.8 (0.2-0.8); MONOCYTES % 8.8 % (4.4-11.3); NEUTROPHILS # (AUTO) 7.1 (2.1-6.9); PLATELET COUNT 625 x10e3/uL (140-360); RED BLOOD COUNT 2.65 x10e6/uL (3.6-5.1); RED CELL DISTRIBUTION WIDTH 15.9 % (11.7-14.4)
[2018-11-26 05:20] LABS: HEMATOCRIT 21.7 % (34.2-44.1)
[2018-11-26 05:21] LABS: HEMOGLOBIN 6.9 g/dL (12.0-16.0)
[2018-11-26 05:39] LABS: ALANINE AMINOTRANSFERASE 6 IU/L (0-55); ALBUMIN 1.5 g/dL (3.5-5.0); ALBUMIN/GLOBULIN RATIO 0.4 (0.8-2.0); ALKALINE PHOSPHATASE 80 IU/L (40-150); ANION GAP 12.2 mmol/L (8-16); BLOOD UREA NITROGEN 9 mg/dL (7-26); BUN/CREATININE RATIO 14 (6-25); CALCIUM 8.1 mg/dL (8.4-10.2); CARBON DIOXIDE 23 mmol/L (22-29); CHLORIDE 105 mmol/L (98-107); CREATININE, SERUM 0.65 mg/dL (0.57-1.11); EST GLOMERULAR FILTRATION RATE > 60 ML/MIN (60-); GLUCOSE 104 mg/dL (74-118); SODIUM 138 mmol/L (136-145)
[2018-11-26 05:42] LABS: POTASSIUM 2.2 mmol/L (3.5-5.1)
[2018-11-26] MEDS ORDERED: POTASSIUM CHLORIDE 20MEQ/100ML 100 ML IV ONE (05:45)
[2018-11-26] MEDS ORDERED: POTASSIUM CHLORIDE 20MEQ/100ML 100 ML ONE (05:58)
[2018-11-26] MEDS ORDERED: SODIUM CHLORIDE 0.9% 250ML 250 ML IV ONE (06:00)
[2018-11-26] MEDS: CEFEPIME 2 GM/NS 0.9% 100 ML 100 ML IV SCH ×3 (06:13→21:38)
--- NOTE | 2018-11-26 06:20 | NUR ---
Notified to about critical labs (Hgb:6.9 and K:2.2). ordered 2units of blood and IV potassium 20mEq once at this time. Will continue to monitor.
--- NOTE | 2018-11-26 07:11 | NUR ---
Report given to oncoming SHANELL Bell, walking round done.
[2018-11-26] MEDS: POTASSIUM CHLORIDE 20 MEQ TAB CR PO SCH (08:32)
[2018-11-26] MEDS: DEPAKOTE DELAYED-RELEASE TAB 500 MG PO SCH (08:32)
[2018-11-26] MEDS: PANTOPRAZOLE SOD 40 MG TABEC PO SCH (08:32)
[2018-11-26] MEDS: AZITHROMYCIN 500MG/SOD CHL 0.9% 250ML BAG IV SCH (08:32)
--- NOTE | 2018-11-26 09:39 | NUR ---
ST NOTE: Attempted MBS at 0930, pt c/o pain of 10 in right lung and nauseated. Gagging observed, RN administering pain medication. Will return later today to complete MBS if pt appropriate. Handoff to SHANELL Arriaga
[2018-11-26] MEDS ORDERED: SODIUM CHLORIDE 0.9% 250ML 250 ML ONE (09:52)
[2018-11-26] MEDS: ACETAMINOPHEN 325 MG TAB PO PRN (12:23)
--- NOTE | 2018-11-26 12:53 | NUR ---
IVF held giving patient blood first unit.
--- NOTE | 2018-11-26 13:12 | NUR ---
ST NOTE: Pt continues to be in severe pain and experiencing nausea, about to get anti-nausea medication. Will re-attempt MBS on 11/27/18
[2018-11-26] MEDS ORDERED: POTASSIUM CHLORIDE 20 MEQ TAB CR PO ONE (13:16)
--- NOTE | 2018-11-26 13:24 | NUR ---
Unit of completed, Dr. Cristopher Rausch rounding, I asked if I am to transfuse 2nd unit of PRB's Received orders to administer 1 unit only for now.
[2018-11-26] MEDS ORDERED: KETOROLAC TROMETHAMINE 30 MG/ML VIAL IV ONE (13:26)
[2018-11-26] MEDS ORDERED: METHYLPREDNISOLONE SOD SUCC 40 MG/ML VIAL 1ML IV ONE (13:30)
[2018-11-26] MEDS ORDERED: PROMETHAZINE 12.5MG/ NACL 0.9% 12.5 MG/50 ML BAG IV PRN (13:30)
[2018-11-26] MEDS: NICOTINE 14 MG/EA PATCH TOP SCH (14:54)
--- NOTE | 2018-11-26 16:01 | Progress Note ---
DATE: SUBJECTIVE: The patient received 1 unit of packed red blood cells this morning. She continues to have some nausea. She also complains of pain when she takes a deep breath. The patient received potassium intravenously. N.p.o. this morning. OBJECTIVE: VITAL SIGNS: The patient is afebrile. The blood pressure is 125/99. Saturation is 98% on 1 L. HEENT: Shows no facial swelling or erythema. CARDIAC: Reveals regular rate and rhythm with a normal S1 and S2. LUNGS: Auscultation of lungs reveals a prolonged expiratory phase bilaterally. ABDOMEN: Soft, nontender. There is no rebound or guarding. EXTREMITIES: Show no leg edema or calf tenderness. There is no cyanosis or clubbing. SKIN: Shows no rashes. NEUROLOGICAL: Shows no focal abnormalities. IMPRESSION: 1. Community-acquired pneumonia with severe sepsis, present on admission. 2. Anemia secondary to chronic blood loss. 3. Moderate protein-calorie malnutrition. 4. Hypokalemia. 5. Chronic obstructive pulmonary disease with acute exacerbation. PLAN: 1. Continue antibiotics. 2. Replace potassium. 3. Check magnesium. 4. Continue nutritional support. 5. Await completion of Speech Therapy evaluation. 6. Physical therapy. Cristopher Rausch MD [facility]/MODL /[id number]
[2018-11-26 17:13] LABS: HEMATOCRIT 26.8 % (34.2-44.1); HEMOGLOBIN 8.6 g/dL (12.0-16.0)
[2018-11-26 17:30] LABS: MAGNESIUM 1.7 MG/DL (1.3-2.1)
[2018-11-26 17:38] LABS: POTASSIUM 2.9 mmol/L (3.5-5.1)
--- NOTE | 2018-11-26 18:08 | NUR ---
informed dr zarate, repeat K level 2.9, orders received and entered
[2018-11-26] MEDS ORDERED: POTASSIUM CHLORIDE 10MEQ EA PO ONE (18:15)
[2018-11-26] MEDS: PROMETHAZINE 12.5MG/ NACL 0.9% 50 ML IV PRN (19:41)
[2018-11-26] MEDS: GUAIFENESIN/CODEINE 10 ML CUP PO PRN (19:41)
--- NOTE | 2018-11-26 20:47 | Diagnostic Imaging Report ---
Frontal and lateral views of the chest. HISTORY: Pneumonia, COPD exacerbation, shortness of breath COMPARISON: Chest radiograph November 24, 2018, CT of the chest December 23, 2018. DISCUSSION: None IMPRESSION: 1. Slightly more confluent opacity of the evolving right upper lung pneumonia superimposed upon a background of emphysema. 2. Interval slightly more confluent right basilar peripheral opacity, atelectasis versus evolving multifocal component of pneumonia.. 3. Chronic healed right proximal humeral fracture. Signed by: Dr. Ronaldo Reid D.O., M.M.M. on 11/26/2018 8:44 PM
[2018-11-26] MEDS: TRAZODONE HCL 50 MG TAB PO SCH (21:38)
[2018-11-27] VITALS (7 sets, daily range): BP systolic 112–123; BP diastolic 73–83
[2018-11-27] MEDS: MORPHINE SULFATE INJ 4 MG/ML INJ 1ML IV PRN (01:37)
[2018-11-27] MEDS: IPRATROPIUM BROMIDE 0.02% 2.5 ML NEB NEB SCH ×7 (03:10→23:40)
[2018-11-27] MEDS: ALBUTEROL SULF 0.083% NEB SOLN 3 ML NEB NEB SCH ×6 (03:10→23:40)
[2018-11-27 05:32] LABS: BASOPHILS % 0.1 % (0.0-1.0); HEMATOCRIT 27.8 % (34.2-44.1); HEMOGLOBIN 8.7 g/dL (12.0-16.0); LYMPHOCYTES # (AUTO) 0.6 (1.0-3.2); LYMPHOCYTES % 7.3 % (18.0-39.1); MEAN CORPUSCULAR HEMOGLOBIN 25.9 pg (28-32); MEAN CORPUSCULAR HGB CONC 31.3 g/dL (31-35); MEAN CORPUSCULAR VOLUME 82.7 fL (81-99); MONOCYTES # (AUTO) 0.2 (0.2-0.8); MONOCYTES % 2.9 % (4.4-11.3); NEUTROPHILS # (AUTO) 6.8 (2.1-6.9); NEUTROPHILS % 88.7 % (38.7-80.0); PLATELET COUNT 638 x10e3/uL (140-360); RED BLOOD COUNT 3.36 x10e6/uL (3.6-5.1); RED CELL DISTRIBUTION WIDTH 15.5 % (11.7-14.4)
[2018-11-27 05:52] LABS: ALANINE AMINOTRANSFERASE 9 IU/L (0-55); ALBUMIN 1.7 g/dL (3.5-5.0); ALBUMIN/GLOBULIN RATIO 0.4 (0.8-2.0); ALKALINE PHOSPHATASE 96 IU/L (40-150); ANION GAP 12.9 mmol/L (8-16); BLOOD UREA NITROGEN 14 mg/dL (7-26); BUN/CREATININE RATIO 22 (6-25); CALCIUM 9.1 mg/dL (8.4-10.2); CARBON DIOXIDE 24 mmol/L (22-29); CHLORIDE 108 mmol/L (98-107); CREATININE, SERUM 0.64 mg/dL (0.57-1.11); EST GLOMERULAR FILTRATION RATE > 60 ML/MIN (60-); GLUCOSE 146 mg/dL (74-118); POTASSIUM 3.9 mmol/L (3.5-5.1); SODIUM 141 mmol/L (136-145)
[2018-11-27] MEDS: CEFEPIME 2 GM/NS 0.9% 100 ML 100 ML IV SCH ×3 (06:00→21:29)
[2018-11-27 07:43] LABS: LYMPHOCYTES % (MANUAL) 11 % (19-48); MONOCYTES % (MANUAL) 3 % (3.4-9.0); NEUTROPHILS % (MANUAL) 86 % (40-74); PLATELET ESTIMATE MARKEDLY INCREASED; RBC MORPHOLOGY COMMENT NORMAL
[2018-11-27] MEDS: MORPHINE SULFATE 2 MG/ML SYR 1ML IV PRN ×3 (08:50→19:13)
[2018-11-27] MEDS: DEPAKOTE DELAYED-RELEASE TAB 500 MG PO SCH (08:50)
[2018-11-27] MEDS: PANTOPRAZOLE SOD 40 MG TABEC PO SCH (08:50)
[2018-11-27] MEDS: AZITHROMYCIN 500MG/SOD CHL 0.9% 250ML BAG IV SCH (08:50)
[2018-11-27] MEDS: POTASSIUM CHLORIDE 20 MEQ TAB CR PO SCH (08:50)
--- NOTE | 2018-11-27 11:28 | Progress Note ---
DATE: SUBJECTIVE: The patient feels better. She has less dyspnea and less congestion. She still complains of pain in the right shoulder area and the chest with inspiration. PHYSICAL EXAMINATION: VITAL SIGNS: The patient is afebrile. The vital signs are stable. HEENT: Shows no facial swelling or erythema. The oropharynx is normal. LYMPHATIC: Shows no submandibular, cervical, or supraclavicular adenopathy. CARDIAC: Reveals regular rate and rhythm with normal S1 and S2. LUNGS: Auscultation of lungs reveals a prolonged expiratory phase bilaterally. ABDOMEN: Soft and nontender. There is no rebound or guarding. EXTREMITIES: Shows no leg edema or calf tenderness. There is no cyanosis or clubbing. IMPRESSION: 1. Community-acquired pneumonia with severe sepsis, present on admission. 2. Anemia secondary to chronic blood loss requiring a blood transfusion. 3. Moderate protein-calorie malnutrition. 4. Old healed fracture of the proximal humerus. 5. Hypokalemia. PLAN: 1. Continue antibiotics. 2. Continue bronchodilators. 3. Complete speech therapy. 4. Wean pain medicine. 5. Potential discharge tomorrow. Cristopher Rausch MD [facility]/SANG /[id number]
[2018-11-27] MEDS: PROMETHAZINE 12.5MG/ NACL 0.9% 50 ML IV PRN ×2 (13:19→21:29)
[2018-11-27] MEDS: NICOTINE 14 MG/EA PATCH TOP SCH (13:19)
[2018-11-27] MEDS: GUAIFENESIN/CODEINE 10 ML CUP PO PRN (19:13)
[2018-11-27] MEDS: TRAZODONE HCL 50 MG TAB PO SCH (21:29)
[2018-11-27] MEDS: ZOLPIDEM TARTRATE 5 MG TAB PO PRN (21:29)
[2018-11-28] MEDS: MORPHINE SULFATE 2 MG/ML SYR 1ML IV PRN ×5 (00:03→19:50)
[2018-11-28] MEDS: IPRATROPIUM BROMIDE 0.02% 2.5 ML NEB NEB SCH ×5 (02:00→23:46)
[2018-11-28] MEDS: ALBUTEROL SULF 0.083% NEB SOLN 3 ML NEB NEB SCH ×6 (03:00→23:47)
[2018-11-28 04:12] VITALS: BP 141/81
[2018-11-28] MEDS: CEFEPIME 2 GM/NS 0.9% 100 ML 100 ML IV SCH ×3 (06:23→21:13)
--- NOTE | 2018-11-28 07:14 | NUR ---
Report given to oncoming nurse, walking round done.
[2018-11-28 07:30] VITALS: BP 120/73
--- NOTE | 2018-11-28 08:07 | NUR ---
MD Queenie MORRIS INTO SEE PT, DISCUSSED POC, PT VERBALIZED UNDERSTANDING
--- NOTE | 2018-11-28 08:25 | NUR ---
PT CLEANSED OF URINE AND WET SHEETS CHANGED , WITH STANDBY ASSIST, PT OOB TO BR, VOIDED WITHOUT DIFFICULTY, SITTING IN BS CHAIR, BREAKFAST TRAY SET UP, CALL LIGHT WITHIN REACH
[2018-11-28] MEDS: PANTOPRAZOLE SOD 40 MG TABEC PO SCH (08:30)
[2018-11-28] MEDS: POTASSIUM CHLORIDE 20 MEQ TAB CR PO SCH (08:30)
--- NOTE | 2018-11-28 08:35 | NUR ---
ORDER FOR SNF THIS AM PT AMBULATING 420 FEET WITH P.T. ON 2 IV ABX WHICH CAN BE DONE AT HOME IF NECESSARY CALLED DR Queenie MORRIS TO NOTIFY-NO SNF CRITERIA AWAIT CALL BACK
--- NOTE | 2018-11-28 08:39 | NUR ---
SPOKE WITH RUFINO REECE AND ASKED TO WEAN OXYGEN IF NOT ABLE, WILL GET HOME 02 EVAL TO SEE IF SHE QUALIFIES FOR HOME OXYGEN
[2018-11-28] MEDS: DEPAKOTE DELAYED-RELEASE TAB 500 MG PO SCH (08:45)
--- NOTE | 2018-11-28 08:50 | NUR ---
PT TOLERATED SMALL AMOUNT OF BREAKFAST, STATES "NOT HUNGRY RIGHT NOW", NEW 20G IV TO R HAND BY CHARGE NURSE, PT TOLERATED WELL, CALL LIGHT WITHIN REACH, BED ALARM ON
[2018-11-28] MEDS: AZITHROMYCIN 500MG/SOD CHL 0.9% 250ML BAG IV SCH (09:00)
[2018-11-28 09:05] VITALS: BP 120/73
[2018-11-28] MEDS: DIAZEPAM 5 MG TAB PO PRN ×2 (09:18→23:12)
--- NOTE | 2018-11-28 09:38 | NUR ---
SPOKE WITH PT ABOUT SNF GAVE HER CHOICES IN NETWORK, SHE ASKED "DO YOU MEAN i HAVE TO GO AND STAY THERE?" i SAID YES, AND HER RESPONSE WAS "ABSOLUTELY NOT, I TOLD THEM I FEEL LIKE I CAN GO HOME TOMORROW AND I PREFER BEING WITH MY AND DOG." PT IS ALERT AND ORIENTED X 3. INFORMED NURSE AND CM.
[2018-11-28 09:53] LABS: BASOPHILS % 0.3 % (0.0-1.0); EOSINOPHILS # (AUTO) 0.1 (0.0-0.4); EOSINOPHILS % 0.9 % (0.0-6.0); HEMOGLOBIN 8.2 g/dL (12.0-16.0); LYMPHOCYTES # (AUTO) 1.3 (1.0-3.2); LYMPHOCYTES % 10.5 % (18.0-39.1); MEAN CORPUSCULAR HEMOGLOBIN 26.2 pg (28-32); MEAN CORPUSCULAR HGB CONC 32.8 g/dL (31-35); MEAN CORPUSCULAR VOLUME 79.9 fL (81-99); MONOCYTES % 7.7 % (4.4-11.3); NEUTROPHILS # (AUTO) 9.8 (2.1-6.9); NEUTROPHILS % 79.1 % (38.7-80.0); PLATELET COUNT 681 x10e3/uL (140-360); RED BLOOD COUNT 3.13 x10e6/uL (3.6-5.1); RED CELL DISTRIBUTION WIDTH 15.6 % (11.7-14.4)
--- NOTE | 2018-11-28 10:18 | NUR ---
SPOKE WITH RESPIRATORY, MADE AWARE OF NEED FOR HOME O2 EVALUATION
[2018-11-28 10:26] LABS: ALANINE AMINOTRANSFERASE 9 IU/L (0-55); ALBUMIN 1.6 g/dL (3.5-5.0); ALBUMIN/GLOBULIN RATIO 0.4 (0.8-2.0); ALKALINE PHOSPHATASE 81 IU/L (40-150); ANION GAP 10.7 mmol/L (8-16); BLOOD UREA NITROGEN 11 mg/dL (7-26); BUN/CREATININE RATIO 19 (6-25); CALCIUM 7.9 mg/dL (8.4-10.2); CARBON DIOXIDE 26 mmol/L (22-29); CHLORIDE 102 mmol/L (98-107); CREATININE, SERUM 0.59 mg/dL (0.57-1.11); EST GLOMERULAR FILTRATION RATE > 60 ML/MIN (60-); GLUCOSE 104 mg/dL (74-118); SODIUM 136 mmol/L (136-145)
[2018-11-28] MEDS: ONDANSETRON HCL INJ 2MG/ML 2ML 2 MG/ML VIAL IV PRN ×3 (10:35→19:50)
--- NOTE | 2018-11-28 10:40 | NUR ---
MEDICATED PER MD ORDER FOR 810 CHEST PAIN FROM "COUGHING", EDUCATED TO NOT GET OOB WITHOUT CALLING FOR ASSISTANCE, PT VERBALIZED UNDERSTANDING, CALL LIGHT WITHIN REACH, BED ALARM ON
[2018-11-28 10:46] LABS: POTASSIUM 2.7 mmol/L (3.5-5.1)
--- NOTE | 2018-11-28 10:59 | NUR ---
TELEPHONED MD Queenie MORRIS TO MAKE AWARE OF LAB RESULTS, POTASSIUM AT 2.7, SPOKE WITH MARISELA, AWAITING CALL BACK
--- NOTE | 2018-11-28 11:30 | NUR ---
WITH STANDBY ASSIST, PT OOB TO BR, VOIDING WITHOUT DIFFICULTY, 02 REMOVED 95% SITTING
--- NOTE | 2018-11-28 11:30 | Progress Note ---
DATE: SUBJECTIVE: The patient has less dyspnea, but still complains of weakness. She is not complaining of chest pain. She has no fevers. PHYSICAL EXAMINATION: VITAL SIGNS: The patient is afebrile. The vital signs are stable. HEENT: Shows no facial swelling or erythema. CARDIAC: Reveals regular rate and rhythm with normal S1, S2. There are no murmurs or rubs. LUNGS: Auscultation of lungs reveals clear breath sounds bilaterally. There is no wheezing. ABDOMEN: Soft, nontender. There is no rebound or guarding. EXTREMITIES: Show no leg edema or calf tenderness. There is no cyanosis or clubbing. SKIN: Shows no rashes. NEUROLOGICAL: Shows no focal abnormalities. IMPRESSION: 1. Community-acquired pneumonia with severe sepsis, present on admission. 2. Moderate protein-calorie malnutrition. 3. Anemia, secondary to chronic blood loss, requiring a blood transfusion. 4. Hypokalemia. PLAN: 1. Repeat laboratory values today. 2. Continue antibiotics. 3. Physical therapy. 4. Complete speech evaluation. 5. SNF evaluation. MD ANUSHKA Hall/SALVADORL /[id number]
--- NOTE | 2018-11-28 11:57 | NUR ---
AMBULATING IN HALLWAY WITH RESPIRATORY THERAPIST AT SIDE, HOME O2 EVAL IN PROGRESS
[2018-11-28 12:08] VITALS: BP 98/74
[2018-11-28] MEDS ORDERED: POTASSIUM CHLORIDE 20 MEQ TAB CR PO ONE (13:00)
[2018-11-28] MEDS: NICOTINE 14 MG/EA PATCH TOP SCH (14:05)
--- NOTE | 2018-11-28 14:27 | NUR ---
AMBULATING IN HALLWAY WITH PHYSICAL THERAPIST AT SIDE Addendum: 11/28/18 at 1457 by Dalila Carvalho RN RA O2 SAT AT THIS TIME 95%
[2018-11-28] MEDS: GUAIFENESIN/CODEINE 10 ML CUP PO PRN ×2 (16:27→23:12)
--- NOTE | 2018-11-28 16:59 | NUR ---
Nutrition LOS Note RD Recommendation for Physician: -Continue regular diet as ordered -Rec appetite stimulant as medically appropriate Plan of Care: RD following, monitoring for tolerance and adequacy Nutrition reason for involvement: LOS Primary Diagnose(s): COPD exacerbation, hypokalemia, leukocytosis, pneumonia, and sepsis PMH: gastritis, COPD, psychiatric problems Ht: 66 in Wt: 128 lbs (bedside scale) BMI: 20.7kg/m2 IBW: 130lb +/- 10% RD Assessment: 11/28 - Chart reviewed. Labs and meds reviewed. 58 year old female, who was admitted for PNA. K was low at 2.7; K-dur was given. Pt reported eating 50% less than usual for over a month. Consumption of 25% of meals recorded in chart since 11/25. No wt loss reported as pt mentioned she usually weighs between 110-115 lbs. At time of visit, pt weighed 128lbs measured using bedscale. Per chart, MBS was completed and ST recommended continuing current diet regimen as pt was tolerating well. Pt also reported N/V that has been going on for a while and Zofran was given today. No chewing/swallowing issues noted. Pt refused nutrition supplements. Will continue to monitor and follow. Current Diet: Regular diet Malnutrition Evaluation (11/28) The patient does not meet criteria for a specified degree of malnutrition at this time. Will re-evaluate at follow-up as appropriate. Energy intake: <75% of estimated energy requirements for >1 month Weight loss: No weight loss reported Fat loss: no loss identified Muscle loss: mild temporal muscle depletion Supporting Evidence: Fluid accumulation: no accumulation identified Functional Status: unable to evaluate Diet Education Needs Assessment: Diet education not indicated. Nutrition Care Level: Moderate Signed: Laurence Church, MS, RD, LD
--- NOTE | 2018-11-28 19:00 | NUR ---
patient received awake, alert, lying quietly in bed. vss. no c/o pain noted at this time. respirations even and unlabored. patient sob on exertion. /nc in use. pm assessment complete. patient instructed to call for assistance when needed.
[2018-11-28 20:00] VITALS: BP 103/61
[2018-11-28] MEDS: TRAZODONE HCL 50 MG TAB PO SCH (21:00)
--- NOTE | 2018-11-28 21:30 | NUR ---
patient oob to bathroom with walker without difficulty. patient continues to refuse bed alarm at this time. no further c/o pain noted at this time.
--- NOTE | 2018-11-28 23:12 | NUR ---
patient medicated for c/o cough and increased anxiety per orders at this time.
[2018-11-29] VITALS: BP 108/69
[2018-11-29] MEDS: IPRATROPIUM BROMIDE 0.02% 2.5 ML NEB NEB SCH ×2 (02:00→07:10)
[2018-11-29] MEDS: MORPHINE SULFATE 2 MG/ML SYR 1ML IV PRN ×2 (02:30→06:30)
[2018-11-29] MEDS: ONDANSETRON HCL INJ 2MG/ML 2ML 2 MG/ML VIAL IV PRN ×2 (02:30→06:30)
--- NOTE | 2018-11-29 02:30 | NUR ---
patient medicated for c/o pain and nausea per orders at this time per patients request.
[2018-11-29] MEDS: ALBUTEROL SULF 0.083% NEB SOLN 3 ML NEB NEB SCH ×2 (03:00→07:10)
[2018-11-29 03:53] VITALS: BP 119/72
[2018-11-29] MEDS: CEFEPIME 2 GM/NS 0.9% 100 ML 100 ML IV SCH (06:00)
--- NOTE | 2018-11-29 06:30 | NUR ---
patient medicated for c/o pain and nausea per orders at this time per patients request. patient lying quietly in bed. vss. at the bedside.
[2018-11-29 07:00] VITALS: BP 106/68
--- NOTE | 2018-11-29 08:00 | NUR ---
WITH STANDBY ASSIST, PT OOB TO BR, VOIDING WITHOUT DIFFICULTY, STANDBY ASSIST, BACK TO BED
[2018-11-29] MEDS: DIAZEPAM 5 MG TAB PO PRN (08:15)
[2018-11-29] MEDS: PANTOPRAZOLE SOD 40 MG TABEC PO SCH (08:18)
[2018-11-29] MEDS: AZITHROMYCIN 500MG/SOD CHL 0.9% 250ML BAG IV SCH (08:18)
[2018-11-29] MEDS: DEPAKOTE DELAYED-RELEASE TAB 500 MG PO SCH (08:18)
[2018-11-29] MEDS: POTASSIUM CHLORIDE 20 MEQ TAB CR PO SCH (08:18)
[2018-11-29 08:19] VITALS: BP 106/68
--- NOTE | 2018-11-29 08:24 | NUR ---
MD Queenie MORRIS INTO SEE PT, DISCUSSED DISCHARGE INSTRUCTIONS, PT VERBALIZED UNDERSTANDING
[2018-11-29] MEDS ORDERED: K DUR10 MEQ PO (09:24)
[2018-11-29] MEDS ORDERED: CEFDINIR300 MG PO (09:25)
[2018-11-29] MEDS ORDERED: PREDNISONE10 MG PO (09:26)
[2018-11-29] MEDS ORDERED: ULTRAM 50MG50 MG PO (09:26)
--- NOTE | 2018-11-29 09:47 | NUR ---
PT REQUESTING PRESCRIPTION FOR NAUSEA, TELEPHONED AND SPOKE WITH MD Queenie MORRIS, NOTIFIED TO TELL PT TO COME BY OFFICE FOR PRESCRIPTION, AND ORDERS NOTED FOR WALKER PER PT RECOMMENDATIONS
--- NOTE | 2018-11-29 10:20 | NUR ---
DISCHARGE INSTRUCTIONS REVIEWED , PT VERBALIZED UNDERSTANDING, WALKER GIVEN PER MD ORDER ,PT WHEELED OFF UNIT VIA WC FOR DISCHARGE, NO CHANGE IN CONDITION
--- NOTE | 2018-11-29 20:02 | Discharge Summary ---
DISCHARGE MEDICATIONS: 1. 10 mg p.o. t.i.d. p.r.n. 2. Nexium 40 mg p.o. daily. 3. Trazodone 300 mg p.o. at bedtime. 4. Prednisone taper starting at 30 mg. 5. K-Dur 20 mEq p.o. daily x3 days. 6. Omnicef 300 mg p.o. b.i.d. for 7 days. 7. Tramadol 50 mg p.o. t.i.d. p.r.n. DISCHARGE DIAGNOSES: 1. Community-acquired pneumonia with severe sepsis, present on admission. 2. Moderate protein-calorie malnutrition. 3. Anemia secondary to chronic blood loss requiring a blood transfusion. 4. Hypokalemia. 5. Oropharyngeal dysphagia with recurrent aspiration. HISTORY OF PRESENT ILLNESS: The patient is a 58-year-old woman. She has a history of severe COPD. She also has a history of gastritis. She was diagnosed two years ago by endoscopy. She uses bronchodilators as well as steroids at home. She came in complaining of worsening congestion and dyspnea. She had a cough productive of small amounts of phlegm as well as some fever. She also noted some pain in her back with deep inspiration. HOSPITAL COURSE: The patient was admitted. She had a chest x-ray that showed right upper lobe infiltrate along with a marked leukocytosis. She received IV fluids along with IV antibiotics. She was huff-cultured and responded well. The patient also had a CT scan that confirmed an infiltrate in the right upper lobe, probably secondary to pneumonia. The radiologist recommended a repeat CT scan in two months to document resolution. The patient also had a bronchoscopy with bronchoalveolar lavage and brushings. Her hospitalization was further complicated by a low blood count with a hemoglobin of 6.9. She required 1 unit of packed red blood cells. She had a low potassium and required repletion of her potassium both orally and intravenously. She also required nutritional supplementation and evaluation by Nutrition for her low albumin and poor nutritional status. She was seen by speech therapy and felt to have some risk for aspiration. Speech therapy as an outpatient was recommended. DISPOSITION: The patient will be discharged home and will follow up with Dr. Rausch in 1 week. She will have a CT scan of the chest again in six weeks as an outpatient. MD ANUSHKA Hall/SANG /[id number]
--- NOTE | 2018-12-01 08:45 | Diagnostic Imaging Report ---
PROCEDURE: X-RAY MODIFIED BARIUM SWALLOW COMPARISON: None. INDICATION: Pneumonia, aspiration Radiation Details: Fluoroscopy time: 2.0 minutes Cumulative dose: 8.4 mGy DISCUSSION: Fluoroscopic examination was performed in conjunction with speech pathology during swallowing a variety of thin and thick liquid consistencies. Provided images demonstrate laryngeal penetration and silent microaspiration. CONCLUSION: Modified barium swallow demonstrating laryngeal penetration and silent microaspiration. Please refer to the speech pathology report for further details. Signed by: Prakash Elias MD on 12/01/2018 8:42 AM
== END 2018-11-29 10:22 | disposition home or self-care (01) | DRG 871 ==
LOC: ER 12:00 → ERHOLD 13:59 → IMCU 15:18
PROVIDERS: ADMIT Internal Medicine Critical Care Medicine; ATTEND Internal Medicine Critical Care Medicine
PROC: 0B9C8ZX Drainage of Right Upper Lung Lobe, Via Natural or Artificial Opening Endoscopic, Diagnostic (ICD-10-PCS; principal; 2018-11-24 15:00)
PROC: 0BD48ZX Extraction of Right Upper Lobe Bronchus, Via Natural or Artificial Opening Endoscopic, Diagnostic (ICD-10-PCS; principal; 2018-11-24 15:00)
PROC: 30233N1 Transfusion of Nonautologous Red Blood Cells into Peripheral Vein, Percutaneous Approach (ICD-10-PCS; 2018-11-26)
DX: A41.9 Sepsis, unspecified organism (principal); J18.9 Pneumonia, unspecified organism; J96.00 Acute respiratory failure, unspecified whether with hypoxia or hypercapnia; J44.0 Chronic obstructive pulmonary disease with (acute) lower respiratory infection; J44.1 Chronic obstructive pulmonary disease with (acute) exacerbation; E44.0 Moderate protein-calorie malnutrition; D50.0 Iron deficiency anemia secondary to blood loss (chronic); E87.6 Hypokalemia; R65.20 Severe sepsis without septic shock; K29.70 Gastritis, unspecified, without bleeding; R13.12 Dysphagia, oropharyngeal phase; F17.200 Nicotine dependence, unspecified, uncomplicated; Z79.52 Long term (current) use of systemic steroids
CPT/HCPCS: 31622; 36415; 36600; 71045; 71046; 71260; 74230; 80053; 80307; 81001; 82103; 82550; 82553; 82805; 83518; 83605; 83735; 84132; 84134; 84484; 85014; 85018; 85025; 85610; 85730; 86850; 86900; 86920; 87040; 87070; 87102; 87116; 87205; 87206; 87335; 87385; 87400; 87449; 89051; 93005; 94640; 97139; 99285; J0456; J0696; J1885; J2001; J2250; J2270; J2405; J2550; J2920; J2930; J3370; J3480; J7030; J7050; P9016; Q9967

== ENCOUNTER 2018-12-03 13:01 | Observation (INO) | payer OTHER ==
[~2018-12-03] VITALS: Ht 170.2 cm; Wt 51.3 kg
[~2018-12-03 13:01] MED LIST changes: +CEFDINIR300 MG PO; +K DUR10 MEQ PO; +PREDNISONE10 MG PO; +ULTRAM 50MG50 MG PO
[2018-12-03] MEDS ORDERED: SODIUM CHLORIDE 0.9% 1000ML 1,000 ML IV STA (13:04)
[2018-12-03] MEDS ORDERED: KETOROLAC TROMETHAMINE 30 MG/ML VIAL IV ONE (13:30)
[2018-12-03] MEDS ORDERED: ONDANSETRON HCL INJ 2MG/ML 2ML 2 MG/ML VIAL IV ONE (13:30)
--- NOTE | 2018-12-03 14:00 | NUR ---
NOTIFIED DR PENA, X2 PERIPHERAL IV ATTEMPTS AND POOR VENOUS ACCESS, OK TO EJ PER DR PENA.
[2018-12-03 14:14] LABS: BASOPHILS % 0.2 % (0.0-1.0); HEMATOCRIT 30.5 % (34.2-44.1); HEMOGLOBIN 9.8 g/dL (12.0-16.0); LYMPHOCYTES # (AUTO) 1.5 (1.0-3.2); LYMPHOCYTES % 10.2 % (18.0-39.1); MEAN CORPUSCULAR HEMOGLOBIN 25.9 pg (28-32); MEAN CORPUSCULAR HGB CONC 32.1 g/dL (31-35); MEAN CORPUSCULAR VOLUME 80.5 fL (81-99); MONOCYTES # (AUTO) 0.5 (0.2-0.8); MONOCYTES % 3.1 % (4.4-11.3); NEUTROPHILS # (AUTO) 12.6 (2.1-6.9); NEUTROPHILS % 85.6 % (38.7-80.0); PLATELET COUNT 972 x10e3/uL (140-360); RED BLOOD COUNT 3.79 x10e6/uL (3.6-5.1); RED CELL DISTRIBUTION WIDTH 15.4 % (11.7-14.4)
[2018-12-03 14:15] LABS: CLARITY,URINE SL CLOUDY (CLEAR); COLOR,URINE YELLOW (YELLOW); LEUKOCYTE ESTERASE ,URINE NEGATIVE (NEGATIVE); NITRITE,URINE NEGATIVE (NEGATIVE)
[2018-12-03 14:16] LABS: BILIRUBIN,URINE NEGATIVE (NEGATIVE); KETONES,URINE NEGATIVE (NEGATIVE); PROTEIN,URINE DIPSTICK TRACE (NEGATIVE); URINE UROBILINOGEN 0.2 mg/dL (0.2 - 1)
[2018-12-03 14:20] LABS: AMPHETAMINES SCREEN,URINE NEGATIVE (NEGATIVE); PHENCYCLIDINE SCREEN,URINE NEGATIVE (NEGATIVE)
[2018-12-03 14:21] LABS: BENZODIAZEPINES SCREEN,URINE POSITIVE (NEGATIVE)
[2018-12-03 14:24] LABS: AMORPHOUS SEDIMENT,URINE FEW (FEW); BACTERIA,URINE MODERATE /HPF; EPITHELIAL CELLS,URINE FEW /LPF; HYALINE CASTS 0-1 (0-1)
[2018-12-03 14:38] LABS: ALANINE AMINOTRANSFERASE 9 IU/L (0-55); ALBUMIN 2.7 g/dL (3.5-5.0); ALBUMIN/GLOBULIN RATIO 0.6 (0.8-2.0); ALKALINE PHOSPHATASE 92 IU/L (40-150); ANION GAP 13.8 mmol/L (8-16); BLOOD UREA NITROGEN 13 mg/dL (7-26); BUN/CREATININE RATIO 17 (6-25); CALCIUM 8.8 mg/dL (8.4-10.2); CARBON DIOXIDE 27 mmol/L (22-29); CHLORIDE 101 mmol/L (98-107); CREATINE KINASE 8 IU/L (29-168); CREATININE, SERUM 0.77 mg/dL (0.57-1.11); EST GLOMERULAR FILTRATION RATE > 60 ML/MIN (60-); GLUCOSE 122 mg/dL (74-118); LIPASE 8 U/L (8-78); SODIUM 139 mmol/L (136-145)
[2018-12-03 14:40] LABS: POTASSIUM 2.8 mmol/L (3.5-5.1)
--- NOTE | 2018-12-03 14:40 | NUR ---
lab called with critical lab value k+ 2.8 jose m medeiros and dr martínez notified
[2018-12-03] MEDS ORDERED: POTASSIUM CHLORIDE 10MEQ/100ML 100 ML IV ONE (14:45)
--- NOTE | 2018-12-03 15:07 | Diagnostic Imaging Report ---
EXAMINATION: CHEST SINGLE (PORTABLE) INDICATION: Pneumonia, abdominal pain COMPARISON: Chest radiograph of 11/26/2018 FINDINGS: LINES/TUBES:EKG leads overlie the chest. LUNGS:The lungs are hyperinflated. Slight interval improvement in right upper lobe airspace opacity compared to 11/26/2018. Mild bibasilar subsegmental atelectasis. Bilateral emphysematous changes. PLEURA:No pleural effusion or pneumothorax. MEDIASTINUM:The cardiomediastinal silhouette appears unchanged in size and shape. BONES/SOFT TISSUES:No acute osseous injury. ABDOMEN:No free air under the diaphragm. IMPRESSION: Interval improvement in right upper lobe airspace opacity compared to 11/26/2018, consistent with resolving right upper lobe pneumonia. Otherwise, no significant interval change. Signed by: Prakash Elias MD on 12/03/2018 3:04 PM
[2018-12-03] MEDS ORDERED: MORPHINE SULFATE INJ 4 MG/ML INJ 1ML IV PRN ×2 (15:30→17:45)
[2018-12-03] MEDS ORDERED: ONDANSETRON HCL INJ 2MG/ML 2ML 2 MG/ML VIAL IV STA (15:30)
--- NOTE | 2018-12-03 15:41 | Diagnostic Imaging Report ---
EXAM: CT Abdomen and Pelvis WITH intravenous contrast INDICATION: Abdominal pain COMPARISON: CT abdomen and pelvis of 11/15/2010 TECHNIQUE: Abdomen and pelvis were scanned utilizing a multidetector helical scanner from the lung base to the pubic symphysis after administration of IV contrast. Coronal and sagittal reformations were obtained. Routine protocol was performed. Scan was performed during portal venous phase. IV CONTRAST: 100mL of Isovue 370 ORAL CONTRAST: Water RADIATION DOSE: Total DLP: (DLP x 0.015 x size factor) mGy*cm Dose modulation, iterative reconstruction, and/or weight based adjustment of the mA/kV was utilized to reduce the radiation dose to as low as reasonably achievable. FINDINGS: LOWER THORAX: Severe bilateral centrilobular emphysema. Small sliding hiatal hernia. HEPATOBILIARY: Mild hepatic steatosis. Status post cholecystectomy. Mild intrahepatic biliary ductal dilation, also present dating back to 11/15/2010 and likely due to reservoir effect postoperatively. SPLEEN: No splenomegaly. PANCREAS: No focal masses or ductal dilatation. ADRENALS: No adrenal nodules. KIDNEYS/URETERS: No hydronephrosis. 2 mm right midpole nonobstructing renal calculus. 9 mm right renal lower pole solid mass lesion is indeterminate. PELVIC ORGANS/BLADDER: Unremarkable. PERITONEUM / RETROPERITONEUM: No free air or fluid. LYMPH NODES: No lymphadenopathy. VESSELS: Diffuse atherosclerotic calcifications of the nonaneurysmal abdominal aorta and major branches. GI TRACT: There is mild thickening of the sigmoid colon [place], unchanged dating back to 11/15/2010 and is likely clinically insignificant. No other abnormal bowel wall thickening. No bowel obstruction. Normal appendix. BONES AND SOFT TISSUES: No acute osseous injury. No suspicious lytic or blastic lesions. IMPRESSION: 2 mm right mid pole nonobstructing renal calculus. No hydronephrosis. 9 mm right renal lower pole solid mass lesion is indeterminate. Recommend further evaluation with renal mass protocol CT or MRI. Mild hepatic steatosis. Status post cholecystectomy. Unchanged mild intrahepatic biliary ductal dilation dating back to 2010. Mild hepatic steatosis. Signed by: Prakash Elias MD on 12/03/2018 3:37 PM
[2018-12-03] MEDS ORDERED: ONDANSETRON HCL INJ 2MG/ML 2ML 2 MG/ML VIAL ONE (15:43)
[2018-12-03] MEDS ORDERED: MORPHINE SULFATE INJ 4 MG/ML INJ 1ML ONE (15:44)
[2018-12-03] MEDS ORDERED: SODIUM CHLORIDE 0.9% 1000ML 1,000 ML IV SCH (17:32)
[2018-12-03] MEDS ORDERED: ONDANSETRON HCL INJ 2MG/ML 2ML 2 MG/ML VIAL IV PRN (17:45)
[2018-12-03] MEDS ORDERED: CEFTRIAXONE SOD 1 GM/NS 50 ML 50 ML IV SCH (17:45)
[2018-12-03] MEDS ORDERED: DIAZEPAM 5 MG TAB PO PRN (18:15)
[2018-12-03] MEDS ORDERED: TRAMADOL HCL 50 MG TAB PO PRN (18:15)
[2018-12-03] MEDS ORDERED: PROMETHAZINE 12.5MG/ NACL 0.9% 12.5 MG/50 ML BAG IV PRN (18:15)
[2018-12-03] MEDS ORDERED: IOPAMIDOL 370 MG/ML 200 ML INFUS..BTL INJ ONE (18:40)
[2018-12-03] MEDS ORDERED: POTASSIUM CHLORIDE 20 MEQ TAB CR PO ONE (18:45)
--- NOTE | 2018-12-03 18:46 | Pre Op History & Physical ---
CHIEF COMPLAINT: Nausea, vomiting, and low potassium. HISTORY OF PRESENT ILLNESS: The patient is a 58-year-old woman. She has a history of severe COPD. She uses bronchodilators and oxygen at home. She also has a history of gastritis. She was hospitalized at [facility] within the last week because of pneumonia. She was treated with antibiotics and improved. She now returns complaining of nausea and vomiting. She also notes some abdominal pain. Upon evaluation in the emergency department, she is found to have a low potassium of 2.8. PAST SURGICAL HISTORY: Noncontributory. PAST MEDICAL HISTORY: 1. Gastritis. 2. COPD. 3. Psychiatric problems. ALLERGIES: THERE ARE NO KNOWN DRUG ALLERGIES. SOCIAL HISTORY: The patient recently quit smoking. She is not an active drinker. PHYSICAL EXAMINATION: VITAL SIGNS: The patient is afebrile. The vital signs are stable. HEENT: Shows no facial swelling or erythema. CARDIAC: Reveals regular rate and rhythm with normal S1, S2. There are no murmurs or rubs. LUNGS: Auscultation of lungs shows clear breath sounds bilaterally. There is no wheezing. ABDOMEN: Soft, nontender. There is no rebound or guarding. EXTREMITIES: Show no leg edema or calf tenderness. There is no cyanosis or clubbing. SKIN: Shows no rashes. NEUROLOGICAL: Shows no focal abnormalities. LABORATORY DATA: White blood cell count is 14.75 and hemoglobin is 9.8. The platelet count is 972. Potassium is 2.8 and the BUN to creatinine ratio is normal. Albumin is 2.7. RADIOGRAPHIC DATA: Chest x-ray shows interval improvement in the right upper lobe opacity. A CT scan of the abdomen and pelvis shows her renal calculus, but no hydronephrosis. There is some mild hepatic steatosis. The patient had a prior cholecystectomy. IMPRESSION: 1. Hypokalemia. 2. Nausea and vomiting. 3. Chronic obstructive pulmonary disease. 4. Thrombocytosis. PLAN: 1. IV hydration. 2. Replete potassium. 3. Check magnesium. 4. GI consultation. 5. Nutritional evaluation. Cristopher Rausch MD LM/SANG /[id number]
[2018-12-03] MEDS: MORPHINE SULFATE 2 MG/ML SYR 1ML IV PRN ×2 (19:41→23:50)
--- NOTE | 2018-12-03 19:49 | NUR ---
PT REQUESTS "THE COUGH MEDICATION I GOT LAST TIME I WAS ADMITTED" - PT'S CHART CHECKED AND PT RECIEVED ROBITUSSIN WITH CODIENE; DR Darío MORRIS CALLED FOR ORDERS TO CONTINUE
[2018-12-03 20:00] VITALS: BP 171/89
--- NOTE | 2018-12-03 21:30 | NUR ---
PATIENT RECEIVED FROM ER. PATIENT IS AAOX3. RESP EVEN AND UNLABORED. PATIENT C/O N/V, ABDOMINAL PAIN 10/11. WILL MEDICATE PER MAY. ORIENTED TO ROOM. CALL LIGHT WITHIN REACH. INSTRUCT TO CALL FOR ASSISTANCE. BED LOW/LOCKED. BED ALARM IS ON. CONTINUE TO MONITOR CLOSELY
--- NOTE | 2018-12-03 21:32 | NUR ---
ST Note: Pt known to this service from previous admission. Outpatient dysphagia therapy was recommended secondary to mild pharyngeal dysphagia c/b consistent premature spillage over the base of tongue, SILENT microaspiration of thin liquids, and trace to mild pharyngeal residue after the swallow. Pt would benefit from dysphagia therapy while here this admission. If you agree, please order Neuromuscular Electrical Stimulation (NMES) so that therapy may begin.
[2018-12-03] MEDS: SOD CHL 0.45%/POT CHL 20MEQ 1,000 ML IV SCH (21:48)
[2018-12-03 22:00] VITALS: BP 171/89
[2018-12-03] MEDS: ONDANSETRON HCL INJ 2MG/ML 2ML 2 MG/ML VIAL IV PRN (22:18)
[2018-12-03] MEDS: TRAZODONE HCL 50 MG TAB PO SCH (22:43)
--- NOTE | 2018-12-03 23:50 | NUR ---
DR COREA SEE PATIENT AT BED SIDE.
[2018-12-04] VITALS: BP 137/86
[2018-12-04] MEDS: PANTOPRAZOLE 40 MG 10ML VIAL IV SCH ×2 (00:35→09:00)
[2018-12-04] MEDS ORDERED: PNEUMOCOCCAL VACCINE POLYVALENT 23 MCG/0.5 ML VIAL IM SCH (01:46)
[2018-12-04] MEDS ORDERED: INFLUENZA VIRUS VAC SPLIT INJ 0.5 ML SYR IM SCH (01:46)
[2018-12-04] MEDS: MORPHINE SULFATE 2 MG/ML SYR 1ML IV PRN ×5 (03:52→21:15)
[2018-12-04] MEDS: ONDANSETRON HCL INJ 2MG/ML 2ML 2 MG/ML VIAL IV PRN ×5 (03:52→21:15)
[2018-12-04 04:00] VITALS: BP 133/76
[2018-12-04] MEDS: METOCLOPRAMIDE HCL 10 MG/2ML VIAL IV SCH ×4 (05:13→23:52)
[2018-12-04 05:39] LABS: BASOPHILS # (AUTO) 0.1 (0.0-0.1); BASOPHILS % 0.6 % (0.0-1.0); EOSINOPHILS # (AUTO) 0.2 (0.0-0.4); EOSINOPHILS % 1.2 % (0.0-6.0); HEMATOCRIT 30.6 % (34.2-44.1); HEMOGLOBIN 9.7 g/dL (12.0-16.0); LYMPHOCYTES % 16.3 % (18.0-39.1); MEAN CORPUSCULAR HEMOGLOBIN 26.1 pg (28-32); MEAN CORPUSCULAR HGB CONC 31.7 g/dL (31-35); MEAN CORPUSCULAR VOLUME 82.5 fL (81-99); MONOCYTES # (AUTO) 0.7 (0.2-0.8); MONOCYTES % 5.6 % (4.4-11.3); NEUTROPHILS # (AUTO) 9.2 (2.1-6.9); NEUTROPHILS % 75.2 % (38.7-80.0); PLATELET COUNT 741 x10e3/uL (140-360); RED BLOOD COUNT 3.71 x10e6/uL (3.6-5.1); RED CELL DISTRIBUTION WIDTH 15.8 % (11.7-14.4)
[2018-12-04 06:03] LABS: ALANINE AMINOTRANSFERASE 9 IU/L (0-55); ALBUMIN 2.3 g/dL (3.5-5.0); ALBUMIN/GLOBULIN RATIO 0.6 (0.8-2.0); ALKALINE PHOSPHATASE 79 IU/L (40-150); ANION GAP 9.5 mmol/L (8-16); BLOOD UREA NITROGEN 8 mg/dL (7-26); BUN/CREATININE RATIO 12 (6-25); CALCIUM 8.2 mg/dL (8.4-10.2); CARBON DIOXIDE 26 mmol/L (22-29); CHLORIDE 105 mmol/L (98-107); CREATININE, SERUM 0.67 mg/dL (0.57-1.11); EST GLOMERULAR FILTRATION RATE > 60 ML/MIN (60-); GLUCOSE 98 mg/dL (74-118); POTASSIUM 3.5 mmol/L (3.5-5.1); SODIUM 137 mmol/L (136-145)
[2018-12-04 06:18] LABS: FERRITIN 77.66 ng/mL (4.63-204.00)
[2018-12-04] MEDS: SOD CHL 0.45%/POT CHL 20MEQ 1,000 ML IV SCH (06:19)
[2018-12-04 06:40] LABS: FOLATE 11.3 ng/mL (7.0-15.4)
--- NOTE | 2018-12-04 07:45 | NUR ---
DR LOPEZ TO SEE PT EARLIER. Addendum: 12/04/18 at 1538 by Chelo Allen RN PRECIOUS OLSON
[2018-12-04 08:00] VITALS: BP 115/71
--- NOTE | 2018-12-04 08:00 | NUR ---
RECEIVED PT EARLIER RESTING QUIETLY FAMILY AT BEDSIDE.
[2018-12-04] MEDS: POTASSIUM CHLORIDE 20 MEQ TAB CR PO SCH (09:00)
[2018-12-04] MEDS ORDERED: PANTOPRAZOLE SOD 40 MG TABEC PO SCH (09:00)
[2018-12-04 12:00] VITALS: BP 162/75
--- NOTE | 2018-12-04 15:00 | NUR ---
PT TO OR FOR EGD
[2018-12-04] MEDS ORDERED: METOCLOPRAMIDE HCL 10 MG/2ML VIAL ONE (15:03)
[2018-12-04] MEDS ORDERED: PROPOFOL IV EMULSION 10 MG/ML 20 ML VIAL ONE (15:03)
--- NOTE | 2018-12-04 16:25 | NUR ---
PT BACK IN ROOM CO PAIN WILL MEDICATED ORDERED.
--- NOTE | 2018-12-04 18:47 | Progress Note ---
DATE: SUBJECTIVE: The patient went for an EGD today. PHYSICAL EXAMINATION: VITAL SIGNS: The patient is afebrile. The vital signs are stable. HEENT: Shows no facial swelling or erythema. CARDIAC: Reveals a regular rate and rhythm with normal S1 and S2. There are no murmurs or rubs heard. LUNGS: Auscultation of lungs shows clear breath sounds bilaterally. There is no wheezing. ABDOMEN: Soft, nontender. There is no rebound or guarding. EXTREMITIES: Shows no leg edema or calf tenderness. There is no cyanosis or clubbing. SKIN: Shows no rashes. NEUROLOGICAL: Shows no focal abnormalities. IMPRESSION: 1. Hypokalemia. 2. Nausea and vomiting. 3. Chronic obstructive pulmonary disease. PLAN: 1. Await results of EGD. 2. Continue to replete potassium. 3. Probable discharge home tomorrow. MD ANUSHKA Hall/SANG /[id number]
[2018-12-04 20:00] VITALS: BP 131/67
[2018-12-04] MEDS ORDERED: CEFTRIAXONE SOD 1 GM/NS 50 ML 50 ML IV SCH ×2 (20:00)
[2018-12-04] MEDS: TRAZODONE HCL 50 MG TAB PO SCH (20:30)
[2018-12-04] MEDS: PANTOPRAZOL 40MG/SOD CHL 0.9% 50 ML IV SCH (20:30)
[2018-12-04 21:00] VITALS: BP 131/67
[2018-12-04] MEDS ORDERED: SODIUM CHLORIDE 0.9% 250ML 250 ML ONE ×2 (21:21→21:50)
[2018-12-05 00:24] VITALS: BP 108/58
[2018-12-05] MEDS: ONDANSETRON HCL INJ 2MG/ML 2ML 2 MG/ML VIAL IV PRN ×3 (01:23→09:20)
[2018-12-05] MEDS: MORPHINE SULFATE 2 MG/ML SYR 1ML IV PRN ×3 (01:24→09:20)
--- NOTE | 2018-12-05 01:30 | NUR ---
GAVE REPORT TO RN FOR CONTINUING OF CARE.
--- NOTE | 2018-12-05 01:35 | NUR ---
Patient received asleep in bed. Arousable to tactile stimuli. No signs of discomfort or respiratory distress. Call light within reach.
[2018-12-05] MEDS: PANTOPRAZOL 40MG/SOD CHL 0.9% 50 ML IV SCH ×2 (03:11→08:44)
[2018-12-05 04:00] VITALS: BP 142/77
[2018-12-05] MEDS: METOCLOPRAMIDE HCL 10 MG/2ML VIAL IV SCH (05:35)
--- NOTE | 2018-12-05 08:01 | NUR ---
Received report from night nurse. Patient resting in bed, no signs of distress at this time. All safety measures in place. Will continue to monitor.
[2018-12-05 08:10] VITALS: BP 147/87
[2018-12-05] MEDS: POTASSIUM CHLORIDE 20 MEQ TAB CR PO SCH (08:44)
[2018-12-05 09:34] VITALS: BP 147/87
--- NOTE | 2018-12-05 09:49 | NUR ---
Called Dr. Lashawn Matta and confirmed that patient is okay to DC home.
[2018-12-05 11:42] VITALS: BP 119/67
--- NOTE | 2018-12-05 13:21 | NUR ---
Nutrition Intervention Note RD Recommendation(s) for Physician: -ADAT to 2 gm Na per MD, texture per speech. -Recommend Ensure Enlive TID. Plan of Care: RD following, monitoring for tolerance and adequacy. Ensure Enlive TID. Nutrition reason for involvement: MD Consult RD Assessment 12/05:58 YOF admitted for ab pain with PMH listed below. Pt reported she has had a poor appetite for about 2 weeks but stated she thought she had weight loss but could not state an amount. Per her EMR, pt has had weight fluctuating. Pt was d/c last week where her weight was 136lbs, suggesting the pt had a 23 weight loss within one week which could possibly be inaccurate, other related weights such as 117 lbs and 115 lbs were also found in her EMR. Pt stated she had N/V and constipation, she denied chewing/swallowing issues as well despite having a speech evaluation stating Pt would benefit from dysphasia therapy while here this admission. Pt also denied any food allergies. Spoke about pt in rounds, possible d/c today. Pt was open to receiving Ensure Enlive TID-spoke to nurse about this. Will continue to monitor to ensure the pt is on the correct diet and meeting energy and protein needs. Principal Problems/Diagnoses: Ab Pain PMH: 1. Gastritis. 2. COPD. 3. Psychiatric problems. GI: Abd: flat, soft, LBM: not recorded Skin: no wound noted Labs: 12/05: no new labs Meds: abx. Zofran, reglan, protonix Ht:67 in Wt:113 lbs BMI:17.7kg/m^2 IBW:135 lbs Malnutrition Evaluation (12/05) Unable to evaluate at this time. Will re-evaluate at follow-up as appropriate. Energy intake: <75% of estimated energy requirements for >7 days Weight loss: Unable to evaluate at this time d/t possible inaccurate weights. Fat loss: Mild Muscle loss: Moderate-temporal Supporting Evidence: Fluid accumulation: unable to evaluate Functional Status: to evaluate Nutrition Prescription (Diet Order): full liquids Estimated Nutritional Needs: Calories: 7767-1647(30-35) Weight used : CBW -51.3 kg Protein : 51-77(1-1.5) Weight used: CBW-51.3 kg Diet Adequacy: Not meeting calorie needs, Not meeting protein needs Diet Education Needs Assessment: Diet education not indicated, patient on temporary/transition diet. Nutrition Care Level: mod Nutrition Diagnosis: inadequate energy intake related to medical condition as evidenced by the pt reporting a poor appetite and in need of ONS. Goal: Patient will meet 75-100% of estimated needs by follow up Progress: N/A Interventions: -General healthful diet, Commercial beverage, Collaboration with other providers Monitoring/Evaluation: -Total energy intake, Total protein intake, Liquid supplement, Weight change Signed: Christina Clark RD, LD
--- NOTE | 2018-12-06 02:50 | Discharge Summary ---
DISCHARGE DIAGNOSES: 1. Gastritis and esophagitis diagnosed by endoscopy. 2. Hiatal hernia. 3. Nausea and vomiting. 4. Hypokalemia. 5. Chronic obstructive pulmonary disease. DISCHARGE MEDICATIONS: 1. Omnicef 300 mg p.o. b.i.d. 2. Nexium 40 mg p.o. daily. 3. Prednisone taper. 4. Tramadol 50 mg p.o. t.i.d. p.r.n. 5. Trazodone 300 mg p.o. at bedtime. 6. K-Dur 20 mEq p.o. x3 days. CONSULTING PHYSICIAN: Peyman Matta MD. PROCEDURES: Upper endoscopy that showed esophagitis and gastritis. HISTORY OF PRESENT ILLNESS: The patient is a 58-year-old woman. She has a history of severe COPD. She uses oxygen and bronchodilators at home. She was recently hospitalized at [facility] with pneumonia. Several days after being discharged, she noted some nausea and vomiting. She came to the ER and was found to have a low potassium and some dehydration. HOSPITAL COURSE: The patient was admitted. She received IV fluids as well as repletion of her potassium. She was seen by Gastroenterology. She had an upper endoscopy that showed esophagitis and gastritis. She was started on proton pump inhibitors. She noted improvement in her symptoms. DISPOSITION: The patient will be discharged home. FOLLOWUP: She will follow up with Dr. Rausch in [address] Matta in 1 to 2 weeks. Cristopher Rausch MD [facility]/MODL /[id number]
== END 2018-12-05 12:22 | disposition home or self-care (01) ==
LOC: ER 13:01 → ERHOLD 17:32 → MED/SURG2 21:15
PROVIDERS: ADMIT Internal Medicine Critical Care Medicine; ATTEND Internal Medicine Critical Care Medicine
DX: K29.70 Gastritis, unspecified, without bleeding (principal); K22.10 Ulcer of esophagus without bleeding; R10.33 Periumbilical pain; E87.6 Hypokalemia; R11.2 Nausea with vomiting, unspecified; J44.9 Chronic obstructive pulmonary disease, unspecified; D47.3 Essential (hemorrhagic) thrombocythemia; Z90.49 Acquired absence of other specified parts of digestive tract; K76.0 Fatty (change of) liver, not elsewhere classified; K44.9 Diaphragmatic hernia without obstruction or gangrene; F41.9 Anxiety disorder, unspecified; F32.9 Major depressive disorder, single episode, unspecified; K59.00 Constipation, unspecified; K21.0 Gastro-esophageal reflux disease with esophagitis; E86.0 Dehydration; Z23 Encounter for immunization; K92.89 Other specified diseases of the digestive system
CPT/HCPCS: 36415 ×2; 43239; 71045; 74177; 80053 ×2; 80307; 81001; 82550; 82553; 82607; 82728; 82746; 83540; 83690; 83735; 84466; 84484; 85025 ×2; 85045; 88305; 88312; 90732; 93005; 99284; C9113; G0009; G0378 ×3; J0696 ×2; J1885; J2270 ×4; J2405 ×3; J2550; J2704; J2765 ×2; J3480; J7030; J7050; Q9967; S0164